=== PATIENT | female | born 1965 ===

== ENCOUNTER 2016-07-10 07:34 | Day surgery (SDC) | payer MEDICARE, MEDICAID ==
[2016-07-10 08:01] VITALS: BMI 21.7
[2016-07-10 08:09] VITALS: O2SAT 100
[2016-07-10] MEDS ORDERED: Propofol 10 mg/ml Inj (20 ML) ONE (08:48)
[2016-07-10 10:31] VITALS: RESP 12
[2016-07-10 10:33] VITALS: BP 138/60; PULSE 65; TEMP 97.2
== END 2016-07-10 10:25 | disposition home or self-care (01) ==
LOC: C.ENDO 07:34
PROVIDERS: ATTEND Internal Medicine Gastroenterology
DX: Z12.11 Encounter for screening for malignant neoplasm of colon (principal); K64.8 Other hemorrhoids; I10 Essential (primary) hypertension; E11.9 Type 2 diabetes mellitus without complications; I73.9 Peripheral vascular disease, unspecified; Z98.84 Bariatric surgery status; Z79.84 Long term (current) use of oral hypoglycemic drugs; K21.9 Gastro-esophageal reflux disease without esophagitis; Z87.891 Personal history of nicotine dependence; Z79.02 Long term (current) use of antithrombotics/antiplatelets
CPT/HCPCS: 45378; 82948; J2704

== ENCOUNTER 2016-08-05 08:44 | Inpatient (IN) | payer MEDICARE, MEDICAID ==
[2016-08-05 09:14] VITALS: BMI 24.3
--- NOTE | 2016-08-05 09:51 | C.PDOC ---
History Of Present Illness Patient is a 51 year old female with a PMHx of DM, who presents to the ER with a right foot ulcer. Patient states she was using Cipro for the infection with no improvement, then switched to Ceftin. However patient sts wound looks worse, has purulent discharge. Patient was seen in [facility] at the beginning of the month where she had an x-ray of the right foot done, which showed possible osteomyelitis. 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 Cornell White, who instructed her to come to the ER. Patient denies fever, nausea, or vomiting. Time Seen by Provider: 08/05/16 09:40 Chief Complaint (Nursing): Lower Extremity Problem/Injury History Per: Patient History/Exam Limitations: no limitations Onset/Duration Of Symptoms: Days Current Symptoms Are (Timing): Still Present Recent travel outside of the [place]: No - Ankle/Foot Description Of Injury: Other (Right foot ulcer) Past Medical History Reviewed: Historical Data, Nursing Documentation, Vital Signs Vital Signs: Last Vital Signs Temp 97.8 F 08/05/16 10:37 Pulse 62 08/05/16 10:37 Resp 18 08/05/16 10:37 BP 128/72 08/05/16 10:37 Pulse Ox 100 08/05/16 10:37 - Medical History PMH: Anemia (Iron deficiency anemia), HTN, Hypercholesterolemia Denies: Chronic Kidney Disease Surgical History: Endoscopy - [facility] Procedures D & C NEC (08/08/14) ESOPHAGOGASTRODUODENOSCOPY [EGD] W/CLOSED BIOPSY (05/12/14) LAPAROSCOPIC GASTROENTEROSTOMY (09/05/14) LAPAROSCOPIC REPAIR OF DIAPHRAGMATIC HRN, ABDOMINAL APPROACH (09/05/14) OTHER ENDOSCOPY OF SM INTEST (12/24/14) OTHER GASTROSCOPY (09/05/14) Family History: States: Unknown Family Hx - Social History Hx Alcohol Use: No Hx Substance Use: No Review Of Systems Constitutional: Negative for: Fever Gastrointestinal: Negative for: Nausea, Vomiting Musculoskeletal: Positive for: Foot Pain (Right foot ulcer) Physical Exam - Physical Exam Appears: Well, Non-toxic Skin: Normal Color, Warm, Dry Head: Atraumatic, Normacephalic Oral Mucosa: Moist Chest: Symmetrical, No Tenderness Cardiovascular: Rhythm Regular, No Murmur Respiratory: Normal Breath Sounds, No Rales, No Rhonchi, No Wheezing Gastrointestinal/Abdominal: Soft, No Tenderness Extremity: Deformity (Feet appear deformed, bilaterally), Other (Open wound on bottom of right foot with yellow discharge) Pulses: Left Dorsalis Pedis: Normal, Right Dorsalis Pedis: Normal Neurological/Psych: Oriented x3, Normal Speech, Normal Cognition ED Course And Treatment - Laboratory Results Result Diagrams: 08/05/16 10:44 08/05/16 10:44 Progress Note: Blood work and right foot x-ray ordered, IV fluids administered. Spoke with Dr. White in the ER who requests patient to be admitted under the hospitalists service. Spoke with hospitalist who accepted patient on her service. Disposition - Disposition Disposition: HOSPITALIZED Disposition Time: 11:55 Condition: STABLE - Clinical Impression Clinical Impression: Foot ulcer - Scribe Statement The provider has reviewed the documentation as recorded by the Scribelieser Nur All medical record entries made by the Scribe were at my direction and personally dictated by me. I have reviewed the chart and agree that the record accurately reflects my personal performance of the history, physical exam, medical decision making, and the department course for this patient. I have also personally directed, reviewed, and agree with the discharge instructions and disposition. Decision To Admit - Pt Status Changed To: Hospital Disposition Of: Inpatient - Admit Certification Admit to Inpatient:: After my assessment, the patient will require hospitalization for at least two midnights. This is because of the severity of symptoms shown, intensity of services needed, and/or the medical risk in this patient being treated as an outpatient. - InPatient: Physician Admission Certification: I certify that this patient requires 2 or more midnights of care for the following reason:: Patient will need more than 2 days of IV antibiotics (she failed outpatient treatment with 2 antibiotics), she also may need surgical treatment of the wound. - . Bed Request Type: Regular Patient Diagnosis: Foot ulcer
[2016-08-05] MEDS ORDERED: Sodium Chloride 0.9% 500 ML IV STA (10:14)
[2016-08-05] MEDS ORDERED: Sodium Chloride 0.9% 500 ML IV ONE (10:44)
[2016-08-05 10:51] LABS: BASO # 0.1 K/uL (0.0-0.2); BASO % 1.9 % (0.0-2.0); EOS # 0.1 K/uL (0.0-0.7); EOS % 2.2 % (0.0-4.0); HEMATOCRIT 34.4 % (34.0-47.0); LYMPH # 1.8 K/uL (1.0-4.3); MEAN CELL VOLUME 82.3 fL (81.0-99.0); MEAN CORPUSCULAR HEMOGLOBIN 26.4 pg (27.0-31.0); MEAN CORPUSCULAR HGB CONC 32.1 g/dL (33.0-37.0); MEAN PLATELET VOLUME 10.7 fL (7.2-11.7); MONO # 0.3 K/uL (0.0-0.8); MONO % 5.8 % (0.0-10.0); RED CELL DISTRIBUTION WIDTH 13.4 % (11.5-14.5); WHITE BLOOD COUNT 5.8 K/uL (4.8-10.8)
[2016-08-05 11:04] LABS: CHLORIDE 100 mmol/L (98-107); POTASSIUM 4.5 mmol/L (3.6-5.2); SODIUM 140 mmol/L (132-148)
[2016-08-05 11:06] LABS: ALB/GLOB RATIO 1.1 (1.0-2.1); AST/SGOT 45 U/L (14-36); BILIRUBIN,TOTAL 0.5 mg/dL (0.2-1.3); BLOOD UREA NITROGEN 27 mg/dL (7-17); CARBON DIOXIDE 26 mmol/L (22-30); GFR AFRICAN-AMERICAN > 60; TOTAL PROTEIN 8.4 g/dL (6.3-8.3)
[2016-08-05 11:07] LABS: ALKALINE PHOSPHATASE 129 U/L (38-126); ALT/SGPT 57 U/L (9-52); CALCIUM 9.2 mg/dl (8.6-10.4); GLUCOSE,RANDOM 153 mg/dL (65-105)
[2016-08-05] MEDS ORDERED: Piperacillin/Tazobact 3.375 gm 100 ML IV STA (11:26)
[2016-08-05] MEDS ORDERED: Piperacillin/Tazobact 3.375 gm 100 ML IVPB ONE (11:42)
--- NOTE | 2016-08-05 12:13 | CP.PCM.HP ---
Addendum entered and electronically signed by Zohra Galvez 08/05/16 15:11: f/u acute hepatitis panel and u/s abdomen for elevated LFTs Addendum entered and electronically signed by Zohra Galvez 08/05/16 14:35: f/u platelet mixing study as per Dr. Taylor Original Note: <Zohra Galvez - Last Filed: 08/05/16 14:06> History of Present Illness - History of Present Illness History of Present Illness: CC: R foot blister HPI: Patient is a 51 year old female PMHx of PAD, DM, iron deficiency anemia, HTN, hypercholesterolemia presenting with a R foot blister first noticed 6 weeks ago. Patient reports she was seen by Dr. White who gave her PO ciprofloxacin which did not help her infection. Patient was seen in [facility] at the beginning of the month where she had a questionable x-ray of the right foot done, which showed possible osteomyelitis. She has had a similar complain 4-5 years ago for which she was admitted and started on IV antibiotics and then discharged home with a PICC line for IV abx for osteomyelitis. Patient denies much pain at the site and reports that her regimen of Ibuprofen 600mg every 12 hours helps golden the pain. At home she has been applying betadine and the silversalazine and wrapping her foot with gauze. She was last seen by Dr. Jaeger for her PAD 1 month ago and had b/l ABIs. Patient reports some pain with ambulation as that places pressure on the site but otherwise denies any fever, chills, numbness/tingling of her extremities, chest pain, palpitations, shortness of breath, cough, abdominal pain, bowel/ bladder complaints, swelling of her extremities, recent travel/sick contacts. PMD: Dr. King Cardiovascular: Dr. Jaeger Podiatry: Dr. White PMHx: PAD, DM, iron deficiency anemia, HTN, hypercholesterolemia Meds: Plavix, Glipizide, Hydralazine, HCTZ ALL: shellfish PSurg: LE stents by Dr. Jaeger 4-5 years ago, Bariatric surgery [address] Flores, 14 years ago, Hysterectomy by Dr. Kumar 2014 PHospitalizations: 2015 for GI bleed and vaginal bleed FamHx: father with prostate ca and had [place] at age 64; mother of multiple myeloma 14 years ago; both parents had DM and HTN; no hx of CVA SocHx: patient used to smoke 3-4 cigarettes/day for 20 years and quit 14 years ago; drinks EtOH sociallyl denies drug use; lives at home with and three children; works at [employer] ROS: Admits to mild headaches at times and nausea; denies fever, chills, numbness/tingling of her extremities, chest pain, palpitations, shortness of breath, cough, abdominal pain, bowel/bladder complaints, swelling of her extremities ED Course: CBC, CMP, R foot x-ray ordered, IV fluids, 1gm vancomycin, and 1 dose zosyn, blood cultures, wound cultures. Present on Admission - Present on Admission Any Indicators Present on Admission: No Review of Systems - Constitutional Constitutional: As Per HPI. absent: Chills, Fever - EENT Eyes: As Per HPI. absent: Change in Vision Ears: As Per HPI. absent: Tinnitus, Dizziness Nose/Mouth/Throat: As Per HPI. absent: Nasal Congestion, Sore Throat - Cardiovascular Cardiovascular: As Per HPI. absent: Chest Pain, Dyspnea, Edema - Respiratory Respiratory: As Per HPI. absent: Cough, Dyspnea on Exertion, Chest Congestion - Gastrointestinal Gastrointestinal: As Per HPI, Nausea. absent: Abdominal Pain, Constipation, Diarrhea, Vomiting - Genitourinary Genitourinary: As Per HPI. absent: Dysuria, Hematuria, Pyuria - Musculoskeletal Musculoskeletal: As Per HPI. absent: Joint Swelling, Numbness, Stiffness, Tingling - Integumentary Integumentary: As Per HPI, Non-Healing Lesions (R plantar), Wounds (plantar aspect of right foot). absent: Rash, Unusual Bruising - Neurological Neurological: As Per HPI, Headaches. absent: Dizziness, Numbness, Tingling, Weakness - Endocrine Endocrine: As Per HPI. absent: Palpitations - Hematologic/Lymphatic Hematologic: As Per HPI. absent: Easy Bleeding, Easy Bruising Past Patient History - Past Medical History & Family History Past Medical History?: Yes - Past Social History Smoking Status: Former Smoker - CARDIAC Hx Hypercholesterolemia: Yes Hx Hypertension: Yes - PULMONARY Hx Respiratory Disorders: No - NEUROLOGICAL Hx Neurological Disorder: No - HEENT Hx HEENT Problems: No - RENAL Hx Chronic Kidney Disease: No - ENDOCRINE/METABOLIC Hx Endocrine Disorders: Yes Hx Diabetes Mellitus Type 2: Yes - HEMATOLOGICAL/ONCOLOGICAL Hx Anemia: Yes (Iron deficiency anemia) - INTEGUMENTARY Hx Dermatological Problems: No - MUSCULOSKELETAL/RHEUMATOLOGICAL Hx Musculoskeletal Disorders: No Hx Falls: No - GASTROINTESTINAL Hx Gastrointestinal Disorders: Yes Hx Ulcer: Yes - GENITOURINARY/GYNECOLOGICAL Hx Genitourinary Disorders: Yes Hx Reproductive Disorders: Yes (MENORRHAGIA) - PSYCHIATRIC Hx Substance Use: No - SURGICAL HISTORY Hx Surgeries: Yes Hx Section: Yes (X1) Hx Femoral-Popliteal Bypass Graft: Yes Hx Gastric Bypass Surgery: Yes Hx Hysterectomy: Yes - ANESTHESIA Hx Anesthesia: Yes Hx Anesthesia Reactions: No Hx Malignant Hyperthermia: No Meds Allergies/Adverse Reactions: Allergies Allergy/AdvReac Type Severity Reaction Status Date / Time shellfish derived Allergy Intermediate RASH Verified 08/05/16 09:13 Physical Exam - Constitutional Appears: Non-toxic, No Acute Distress - Head Exam Head Exam: ATRAUMATIC, NORMAL INSPECTION, NORMOCEPHALIC - Eye Exam Eye Exam: EOMI, Normal appearance, PERRL. absent: Conjunctival injection, Scleral icterus Pupil Exam: NORMAL ACCOMODATION - ENT Exam ENT Exam: Mucous Membranes Moist - Neck Exam Neck exam: Positive for: Normal Inspection. Negative for: Tenderness - Respiratory Exam Respiratory Exam: Clear to Auscultation Bilateral, NORMAL BREATHING PATTERN. absent: Rales, Rhonchi, Wheezes - Cardiovascular Exam Cardiovascular Exam: REGULAR RHYTHM, RRR, +S1, +S2 - GI/Abdominal Exam GI & Abdominal Exam: Normal Bowel Sounds, Soft. absent: Firm, Guarding, Rigid, Tenderness - Extremities Exam Extremities exam: Positive for: normal capillary refill. Negative for: calf tenderness, pedal edema, tenderness Additional comments: b/l charcot feet R foot wrapped by podiatry - Back Exam Back exam: NORMAL INSPECTION. absent: rash noted, tenderness - Neurological Exam Neurological exam: Alert, Oriented x3 - Psychiatric Exam Psychiatric exam: Normal Affect, Normal Mood - Skin Skin Exam: Dry, Intact, Normal Color, Warm Results - Vital Signs Recent Vital Signs: Last Vital Signs Temp 97.8 F 08/05/16 10:37 Pulse 62 08/05/16 10:37 Resp 18 08/05/16 10:37 BP 128/72 08/05/16 10:37 Pulse Ox 100 08/05/16 10:37 - Labs Result Diagrams: 08/05/16 10:44 08/05/16 10:44 Labs: Laboratory Results - last 24 hr 08/05/16 08/05/16 08/05/16 10:34 10:44 10:44 WBC 5.8 D RBC 4.18 Hgb 11.0 Hct 34.4 MCV 82.3 D MCH 26.4 L MCHC 32.1 L RDW 13.4 Plt Count 198 D MPV 10.7 Neut % (Auto) 59.1 Lymph % (Auto) 31.0 [place] % (Auto) 5.8 Eos % (Auto) 2.2 Baso % (Auto) 1.9 Neut # 3.4 Lymph # 1.8 [place] # 0.3 Eos # 0.1 Baso # 0.1 Sodium 140 Potassium 4.5 Chloride 100 Carbon Dioxide 26 Anion Gap 18 BUN 27 H Creatinine 1.1 Est GFR ( Amer) > 60 Est GFR (Non-Af Amer) 53 POC Glucose (mg/dL) 158 H Random Glucose 153 H Calcium 9.2 Total Bilirubin 0.5 AST 45 H D ALT 57 H D Alkaline Phosphatase 129 H D Total Protein 8.4 H Albumin 4.4 Globulin 3.9 Albumin/Globulin Ratio 1.1 Assessment & Plan - Assessment and Plan (Free Text) Assessment: 51 year old female PMHx of PAD, DM, iron deficiency anemia, HTN, hypercholesterolemia presenting with a R foot blister first noticed 6 weeks ago Plan: Diabetic R plantar foot ulcer Patient admitted to med/surg rule out osteomyelitis f/u MRI R foot w/ and w/out contrast f/u R foot x-ray official read Vancomycin 1gm IVPB BID Zosyn 3.375 IVPB Q6H f/u blood culture f/u wound culture Dr. White podiatry following- patient for debridement 08/06/[address] Fabian consulted- f/u reccs Hx of PAD Plavix 75mg po on hold for procedure on 08/06/16 Hx of Hypertension Continued home medications: Hydralazine 10mg PO BID HCTZ 25mg PO daily Hx of DM2 Continued home medications: Glipizide 10mg PO BIDAC f/u HgbA1c Accucheck RISS ACHS low dose Hx of hypercholesterolemia patient has no home med f/u lipid panel Hx of Iron Deficiency Anemia H&H stable Monitor PPX consistent carb heart healthy diet NPO after midnight SCD c/i VTE ppx on hold for OR tomorrow PT/OT recommended after debridement tomorrow 08/[address] Brandon Galvez PGY1 <Glenys Taylor Cyrus - Last Filed: 08/05/16 21:18> Results - Vital Signs Recent Vital Signs: Last Vital Signs Temp 98.9 F 08/05/16 19:06 Pulse 69 08/05/16 19:06 Resp 20 08/05/16 19:06 BP 167/66 H 08/05/16 19:06 Pulse Ox 100 08/05/16 19:06 - Labs Result Diagrams: 08/05/16 10:44 08/05/16 10:44 Labs: Laboratory Results - last 24 hr 08/05/16 17:52 POC Glucose (mg/dL) 281 H Attending/Attestation - Attestation I have personally seen and examined this patient.: Yes I have fully participated in the care of the patient.: Yes I have reviewed all pertinent clinical information: Yes Notes (Text): Patient seen, evaluated and case discussed with day-time resident. Patient seen in [facility] ED 15 on 08/05/16 at approximately 12:45PM. Podiatry (Dr. White) had seen and evaluated patient in the morning; requesting hospitalist admission. Patient seen at bedside with present. Patient with a history of PAD (vascular stents b/l), diabetes (a1c: 6.5 controlled), iron deficiency anemia, hypertension, elevated cholestrol, hx of morbid obesity controlled s/p gastric bypass surgery comes in with a history of progressively worsening right diabetic ulcer for the past 6 weeks with associated purulent drainage, prescribed PO antibiotic but refractory, with history of prior osteomyelitis of the same heel about 4-5 years ago requiring IV Abx for 4 weeks. Infectious disease consulted given hx of prior osteomyelitis Patient ordered for MRI of right foot ulcer. Cardiology consulted given hx of pad (requiring stents and on plavix) known to the patient. Per Detsky's criteria, patient has Class 1 risk associated with 6% complications. Patient has had a prior myocardial stress test from two years which is normal. Chest xray shows no active disease. Assessment/Plan 1) Diabetic R plantar foot ulcer * Patient admitted to med/surg * Suspicion for osteomyelitis given hx of diabetes and prior history, hx of PAD * f/u MRI R foot w/ and w/out contrast * f/u R foot x-ray official read * In the ED, patient received dose of Vancomycin and Zosyn; will continue Vancomycin 1gm IVPB Q12 hours and Zosyn 3.375 IVPB Q6H * f/u blood culture * f/u wound culture * Podiatry consult (Dr. White) on board-->patient scheduled for wound debridement and bone biopsy * Infectious disease (Dr. Fabian) on consult given prior hx of osteomyelitis 2) Peripheral vascular disease * Plavix 75mg po daily on hold for procedure on 08/06/16 * ordered for platelet mixing study * Patient reports has LOY study last month with cardiology, and reports it was normal 3) Hypertension * Hydralazine 10mg PO BID * HCTZ 25mg PO daily * Monitor vital signs 4) Diabetes type 2 * hx of morbid obesity; s/p gastric bypass surgery * continue with home medication: Glipizide 10mg PO BID * Will give IV fluids: D5 1/2NS 75 cc/hr overnight to prevent hypoglycemia * f/u HgbA1c * Accuchecks QAC and HS * RISS ACHS low dose 5)Hypercholesterolemia * patient has no home med * hx of gastric bypass surgery * f/u lipid panel AM 6) Hx of Iron Deficiency Anemia * H&H stable * Monitor * patient is not on any current iron supplementation; used to see Dr. Engle outpatient 7) Transaminitis * Ordered for hepatitis panel * Abdominal US * monitor liver function tests 8) PPX * consistent carb heart healthy diet * NPO after midnight * Contraindications to SCD secondary to PAD * VTE ppx on hold for OR tomorrow * PT/OT recommended after debridement tomorrow 08/06 * Will start D51/2NS 75 cc/hr after midnight tonight
--- NOTE | 2016-08-05 15:33 | RAD ---
Right foot three views History: Diabetic foot ulcer. Comparison: None available. Findings: Prominent soft tissue swelling seen within the lateral mid foot. Patchy increased sclerosis seen throughout the 5th metatarsal shaft which may represent underlying acute osteomyelitis. Correlation with MRI and or 3 phase bone scan is recommended. Deformity with bony ankylosis and sclerosis noted at the level of the 2nd through metatarsal bases and corresponding tarsal bones. Near complete ankylosis of the visualized midfoot including the cuneiform bones, cuboid bone, and navicular bone. Bony ankylosis including the anterior calcaneus and talus. Productive change with cortical sclerosis seen at the volar midfoot as well as the lateral base of the 5th metatarsal bone. Prominent productive change at the level of the residual cuneiform bones and navicular bone. Diffuse osteopenia. Impression: Prominent soft tissue swelling seen within the lateral mid foot. Patchy increased sclerosis seen throughout the 5th metatarsal shaft which may represent underlying acute osteomyelitis. Correlation with MRI and or 3 phase bone scan is recommended. Deformity with bony ankylosis and sclerosis noted at the level of the 2nd through metatarsal bases and corresponding tarsal bones. Near complete ankylosis of the visualized midfoot including the cuneiform bones, cuboid bone, and navicular bone. Bony ankylosis including the anterior calcaneus and talus. Productive change with cortical sclerosis seen at the volar midfoot as well as the lateral base of the 5th metatarsal bone. Prominent productive change at the level of the residual cuneiform bones and navicular bone. Diffuse osteopenia. Further evaluation with MRI and or 3 phase bone scan is recommended to exclude underlying osteomyelitis.
[2016-08-05] MEDS ORDERED: Gadodiamide 287 MG/ML VIAL (15ML) IV ONE (15:35)
--- NOTE | 2016-08-05 15:52 | CP.PCM.CON ---
History of Present Illness - History of Present Illness History of Present Illness: Podiatry consult note- Dr. White 51 year old female with PMHx of PAD, DM, iron deficiency anemia, HTN, hypercholesterolemia, and charcot, presenting to the ED with a chief complaint of right plantar foot ulceration. Patient has had the lesion for about six weeks , states that she has had purulent drainage from the area. She has seen Dr. White as outpatient and was given multiple PO antibiotics. Patient has a history of OM treated with six weeks IV abc, her most recent x-rays are suspicious for OM as well. Patient denies n/v/f/c/sob at this time. Past Patient History - Past Medical History & Family History Past Medical History?: Yes - Past Social History Smoking Status: Former Smoker - CARDIAC Hx Hypercholesterolemia: Yes Hx Hypertension: Yes - PULMONARY Hx Respiratory Disorders: No - NEUROLOGICAL Hx Neurological Disorder: No - HEENT Hx HEENT Problems: No - RENAL Hx Chronic Kidney Disease: No - ENDOCRINE/METABOLIC Hx Endocrine Disorders: Yes Hx Diabetes Mellitus Type 2: Yes - HEMATOLOGICAL/ONCOLOGICAL Hx Anemia: Yes (Iron deficiency anemia) - INTEGUMENTARY Hx Dermatological Problems: No - MUSCULOSKELETAL/RHEUMATOLOGICAL Hx Musculoskeletal Disorders: No Hx Falls: No - GASTROINTESTINAL Hx Gastrointestinal Disorders: Yes Hx Ulcer: Yes - GENITOURINARY/GYNECOLOGICAL Hx Genitourinary Disorders: Yes Hx Reproductive Disorders: Yes (MENORRHAGIA) - PSYCHIATRIC Hx Substance Use: No - SURGICAL HISTORY Hx Surgeries: Yes Hx Section: Yes (X1) Hx Femoral-Popliteal Bypass Graft: Yes Hx Gastric Bypass Surgery: Yes Hx Hysterectomy: Yes - ANESTHESIA Hx Anesthesia: Yes Hx Anesthesia Reactions: No Hx Malignant Hyperthermia: No Meds Allergies/Adverse Reactions: Allergies Allergy/AdvReac Type Severity Reaction Status Date / Time shellfish derived Allergy Intermediate RASH Verified 08/05/16 09:13 - Medications Medications: Current Medications Glipizide (Glucotrol) 10 mg PO BIDAC ASIF Hydralazine HCl (Apresoline) 10 mg PO BID ASIF Hydrochlorothiazide (Hydrodiuril) 25 mg PO DAILY ASIF Piperacillin Sod/Tazobactam (Sod 3.375 gm/ Sodium Chloride) 100 mls @ 200 mls/ hr IVPB Q6 ASIF Vancomycin HCl 1 gm/ Sodium (Chloride) 250 mls @ 166.7 mls/hr IVPB Q12 ASIF Insulin Aspart (Novolog) 0 unit SC ACHS ASIF PRN Reason: Protocol Physical Exam - Constitutional Appears: Well, Non-toxic, No Acute Distress - Neurological Exam Neurological exam: Oriented x3 - Psychiatric Exam Psychiatric exam: Normal Affect, Normal Mood - Additional Findings Additional findings: DERMATOLOGIC: Right plantar foot ulceration with hyperkeratotic margin, fibrotic wound base, mild purulent drainage, mild undermining, no erythema or streaking noted. The surrounding skin is intact with xerosis present. 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 White Patients foot dressed with betadine, DSD Patient to OR tomorrow morning at 7:30 am for wound debridement and bone biopsy NPO after midnight Will f/u right foot MRI F/u wound cultures Pt started on IV vanco and Zosyn Podiatry will continue to follow
--- NOTE | 2016-08-05 16:06 | RAD ---
PROCEDURE: CHEST RADIOGRAPH, 1 VIEW HISTORY: baseline cxr COMPARISON: 06/20/2016 FINDINGS: LUNGS: No focal infiltrate or effusion. PLEURA: No pneumothorax or pleural fluid seen. CARDIOVASCULAR: Normal. OSSEOUS STRUCTURES: No significant abnormalities. VISUALIZED UPPER ABDOMEN: Normal. OTHER FINDINGS: None. IMPRESSION: No active disease.
[2016-08-05] MEDS: Piperacillin/Tazobact 3.375 GM in Sodium Chloride 100 ML IVPB SCH (20:40)
[2016-08-05] MEDS: (Novolog) Insulin Aspart, Recombinant 100 u/ml 10 ml vial SC SCH ×2 (20:51→22:15)
--- NOTE | 2016-08-05 20:59 | MRI ---
MRI right foot History: Osteomyelitis. Neuropathic arthropathy. Comparison: X-ray dated 08/05/2016 Technique: Multi-echo multiplanar sequences were performed through the right lower extremity without and with the use of intravenous contrast. Findings: Prominent reactive bone marrow edema with patchy decreased T1 signal, increased STIR signal and patchy post-contrast enhancement seen within the 5th metatarsal bone extending from the distal medullary cavity to the base with adjacent extension into the residual ankylosed cuboid and lateral cuneiform bones. Milder patchy reactive edema at the base of the 4th metatarsal bone. These findings may represent a developing acute osteomyelitis versus stress fracture versus the sequelae of an active component of neuropathic arthropathy versus additional etiology. Clinical correlation. Multiple tarsal and tarsal/metatarsal deformities with partial partial ankylosis. Prominent deformities of the middle and lateral cuneiform bones with prominent ankylosis of the residual remaining tarsal bones which are markedly deformed. Prominent narrowing of the tibiotalar joint space posteriorly with subchondral edema, subchondral cyst formation, and prominent osteochondral change. Prominent subchondral cyst measures 7.5 millimeters noted at the posterior aspect of the talar dome with an additional 4 millimeter osteochondral lesion noted at the medial talar dome. Prominent osteochondral change noted at the posterior aspect of the distal tibia at the tibiotalar joint space. Superimposed acute infectious and or inflammatory changes cannot entirely be excluded. Clinical correlation. Small ankle joint effusion. Anterior extensor tendons are preserved. Mild tenosynovitis of the posterior tibial tendon sheath. Peroneal tendons are preserved. Prominent bony deformity with increased STIR signal noted at the base of the 2nd metatarsal bone with adjacent fraying and partial tearing of the Lisfranc ligament. Clinical correlation. Reactive edema seen within the lateral aspect of the medial cuneiform bone. Fraying with increased signal seen within the deep fibers of the deltoid ligament suggestive for partial tearing. Achilles tendon preserved. Plantar fascia preserved. Soft tissue ulceration seen in the lateral midfoot. Impression: 1. Prominent reactive bone marrow edema with patchy decreased T1 signal, increased STIR signal and patchy post-contrast enhancement seen within the 5th metatarsal bone extending from the distal medullary cavity to the base with adjacent extension into the residual ankylosed cuboid and lateral cuneiform bones. Milder patchy reactive edema at the base of the 4th metatarsal bone. These findings may represent a developing acute osteomyelitis versus stress fracture versus the sequelae of an active component of neuropathic arthropathy versus additional etiology. Clinical correlation. 2. Multiple tarsal and tarsal/metatarsal deformities with partial partial ankylosis. Prominent deformities of the middle and lateral cuneiform bones with prominent ankylosis of the residual remaining tarsal bones which are markedly deformed. 3. Prominent narrowing of the tibiotalar joint space posteriorly with subchondral edema, subchondral cyst formation, and prominent osteochondral change. Prominent subchondral cyst measures 7.5 millimeters noted at the posterior aspect of the talar dome with an additional 4 millimeter osteochondral lesion noted at the medial talar dome. Prominent osteochondral change noted at the posterior aspect of the distal tibia at the tibiotalar joint space. Superimposed acute infectious and or inflammatory changes cannot entirely be excluded. Clinical correlation. 4. Small ankle joint effusion. 5. Mild tenosynovitis of the posterior tibial tendon sheath. 6. Prominent bony deformity with increased STIR signal noted at the base of the 2nd metatarsal bone with adjacent fraying and partial tearing of the Lisfranc ligament. Clinical correlation. 7. Reactive edema seen within the lateral aspect of the medial cuneiform bone. 8. Fraying with increased signal seen within the deep fibers of the deltoid ligament suggestive for partial tearing. 9. Soft tissue ulceration seen in the lateral midfoot. These findings were preliminarily reported by Dr Pranay Ernandez at 5:26 p.m. on 08/05/2016 from [facility].
[2016-08-05] MEDS: Saccharomyces Boulardi 250 mg Cap PO SCH (22:15)
[2016-08-06] MEDS: Dextrose 5%/0.45% NS 1,000 ML IV SCH ×3 (00:05→21:15)
[2016-08-06] MEDS: Piperacillin/Tazobact 3.375 GM in Sodium Chloride 100 ML IVPB SCH ×4 (00:14→18:34)
[2016-08-06 07:16] LABS: BASO # 0.1 K/uL (0.0-0.2); BASO % 1.1 % (0.0-2.0); EOS # 0.2 K/uL (0.0-0.7); EOS % 4.2 % (0.0-4.0); HEMATOCRIT 33.3 % (34.0-47.0); LYMPH # 2.3 K/uL (1.0-4.3); LYMPH % 44.6 % (20.0-40.0); MEAN CELL VOLUME 82.6 fL (81.0-99.0); MEAN CORPUSCULAR HEMOGLOBIN 26.5 pg (27.0-31.0); MEAN CORPUSCULAR HGB CONC 32.1 g/dL (33.0-37.0); MEAN PLATELET VOLUME 10.5 fL (7.2-11.7); MONO # 0.4 K/uL (0.0-0.8); MONO % 7.2 % (0.0-10.0); RED CELL DISTRIBUTION WIDTH 13.7 % (11.5-14.5); WHITE BLOOD COUNT 5.3 K/uL (4.8-10.8)
[2016-08-06] MEDS ORDERED: HYDROmorphone 0.5 mg/0.5 ml ISec IVP PRN (07:33)
[2016-08-06] MEDS ORDERED: Bupivacaine HCl 0.5% PF (10 ml) Inj ONE (07:41)
[2016-08-06] MEDS ORDERED: Lidocaine 1% Inj (20ml) ONE (07:42)
[2016-08-06] MEDS ORDERED: Lactated Ringer's 1,000 ML IV ONE ×2 (07:50→08:55)
[2016-08-06 07:54] LABS: POTASSIUM 4.2 mmol/L (3.6-5.2)
[2016-08-06 07:56] LABS: ALB/GLOB RATIO 1.1 (1.0-2.1); BILIRUBIN,TOTAL 0.5 mg/dL (0.2-1.3); TOTAL PROTEIN 7.1 g/dL (6.3-8.3)
[2016-08-06 07:57] LABS: CALCIUM 8.9 mg/dl (8.6-10.4); MAGNESIUM 1.8 mg/dL (1.6-2.3); PHOSPHOROUS 4.6 mg/dL (2.5-4.5)
[2016-08-06] MEDS ORDERED: Propofol 10 mg/ml Inj (20 ML) ONE (07:59)
[2016-08-06] MEDS ORDERED: Midazolam 2 MG/2 ML VIAL ONE (07:59)
[2016-08-06] MEDS ORDERED: ePHEDrine 50 mg/ml Inj ONE (08:09)
[2016-08-06] MEDS: (Novolog) Insulin Aspart, Recombinant 100 u/ml 10 ml vial SC SCH ×4 (08:15→22:36)
--- NOTE | 2016-08-06 09:04 | PCM.SURG1 ---
Surgeon's Initial Post Op Note - Surgeon's Notes Surgeon: Dr. White Heavy Line Technician: Gabby Anderson PGY-2 Type of Anesthesia: General LMA, Local Anesthesia Administered By: Dr. 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 M: 4-0 nylon. A: 16 ml 1:1 0.5 marcaine plain, 1% lidocaine plain Post-Operative Diagnosis: same Operation Performed: right foot wound debridement with debridement of bone, bone biopsy Specimen/Specimens Removed: right foot bone biopsy, culture Estimated Blood Loss: EBL {In ML}: 15 Blood Products Given: N/A Drains Used: No Drains Post-Op Condition: Good Date of Surgery/Procedure: 08/06/16 Time of Surgery/Procedure: 08:00
[2016-08-06] MEDS ORDERED: Oxycodone/Acetaminophen 5/325 mg Tab PO PRN (09:06)
[2016-08-06 09:30] LABS: IRON 95 ug/dL (37-170)
[2016-08-06] MEDS: Labetalol 25mg/5ml Syringe IVP PRN ×2 (09:40→09:42)
[2016-08-06] MEDS ORDERED: Labetalol 5 mg/ml Inj 20ML IV ONE ×2 (09:47→09:52)
--- NOTE | 2016-08-06 10:24 | CARD ---
APPROVED REPORT EKG Measurement Heart [id number] <Conclusion> Normal sinus rhythm Septal infarct, age undetermined Abnormal ECG
--- NOTE | 2016-08-06 11:10 | CP.PCM.CON ---
History of Present Illness - History of Present Illness History of Present Illness: Patient is a 51 year old female with a PMHx of DM, who presents to the ER with a right foot ulcer. Patient states she was using Cipro for the infection with no improvement, then switched to Ceftin. However patient sts wound looks worse, has purulent discharge. Patient was seen in [facility] at the beginning of the month where she had an x-ray of the right foot done, which showed possible osteomyelitis. Patient saw her management information systems director, Dr. Cornell White, who instructed her to come to the ER. Patient denies fever, nausea, or vomiting. - Medical History PMH: Anemia (Iron deficiency anemia), HTN, Hypercholesterolemia Denies: Chronic Kidney Disease Surgical History: Endoscopy - [facility] Procedures Review of Systems - Constitutional Constitutional: As Per HPI - EENT Eyes: absent: As Per HPI, Blind Spots, Blurred Vision, Change in Vision, Decreased Night Vision, Diplopia, Discharge, Dry Eye, Exophthalmos, Floaters, Irritation, Itchy Eyes, Loss of Peripheral Vision, Pain, Photophobia, Requires Corrective Lenses, Sees Flashes, Spots in Vision, Tunnel Vision, Other Visual Disturbances, Loss of Vision, Other Ears: absent: As Per HPI, Decreased Hearing, Ear Discharge, Ear Pain, Tinnitus, Abnormal Hearing, Disequilibrium, Dizziness, Other Nose/Mouth/Throat: absent: As Per HPI, Epistaxis, Nasal Congestion, Nasal Discharge, Nasal Obstruction, Nasal Trauma, Nose Pain, Post Nasal Drip, Sinus Pain, Sinus Pressure, Bleeding Gums, Change in Voice, Dental Pain, Dry Mouth, Dysphagia, Halitosis, Hoarsness, Lip Swelling, Mouth Lesions, Mouth Pain, Odynophagia, Sore Throat, Throat Swelling, Tongue Swelling, Facial Pain, Neck Pain, Neck Mass, Other - Breasts Breasts: absent: As Per HPI, Change in Shape, Mass, Pain, Nipple Discharge, Nipple Inversion, Skin Changes, Swelling, Other - Cardiovascular Cardiovascular: absent: As Per HPI, Acrocyanosis, Chest Pain, Chest Pain at Rest , Chest Pain with Activity, Claudication, Diaphoresis, Dyspnea, Dyspnea on Exertion, Edema, Irregular Heart Rhythm, Pain Radiating to Arm/Neck/Jaw, Leg Edema, Leg Ulcers, Lightheadedness, Orthopnea, Palpitations, Paroxysmal Nocturnal Dyspnea, Pedal Edema, Radiating Pain, Rapid Heart Rate, Slow Heart Rate, Syncope, Other - Respiratory Respiratory: absent: As Per HPI, Cough, Dyspnea, Hemoptysis, Dyspnea on Exertion , Wheezing, Snoring, Stridor, Pain on Inspiration, Chest Congestion, Excessive Mucous Production, Change in Mucous Color, Pain with Coughing, Other - Gastrointestinal Gastrointestinal: absent: As Per HPI, Abdominal Pain, Belching, Bloating, Change in Bowel Habits, Change in Stool Character, Coffee Ground Emesis, Constipation, Cramping, Diarrhea, Dyspepsia, Dysphagia, Early Satiety, Excessive Flatus, Fecal Incontinence, Heartburn, Hematemesis, Hematochezia, Loose Stools, Melena, Nausea, Odynophagia, Temesmus, Vomiting, Other - Genitourinary Genitourinary: absent: As Per HPI, Change in Urinary Stream, Difficulty Urinating, Dysuria, Flank Pain, Hematuria, Pyuria, Nocturia, Urinary Incontinence, Urinary Frequency, Urinary Hesitance, Urinary Urgency, Voiding Freq/Small Amts, Freq UTI, Hx Renal/Bladder Calculi, Hx /Renal Surgery, Bladder Distension, Other - Reproductive: Female Reproductive:Female: absent: As Per HPI, Amenorrhea, Amenorrhea/ Control, Currently Menstual, Cycle <21 Days, Cycle >35 Days, Cycle Variable, Menses 1-7 Days, Menses >/= 8 Days, Menses Variable, Cycle > 4 Weeks Between, No Menses for 6 Months, Heavy Menses, Light Menses, Normal Menses, Spotting Between Cycles , S/P Hysterectomy, Menopausal, Post Menopausal, Premenarche, Abnormal Vaginal Bleeding, Dysmenorrhea, Dyspareunia, Genital Lesions, Genital Pruritis, Pelvic Pain, Prolapse Symptoms, Sexual Dysfunction, Vaginal Discharge, Vaginal Dryness , Vaginal Odor, Vaginal Pruritis, Other - Menstruation Menstruation: absent: As Per HPI, Amenorrhea, Amenorrhea/ Control, Currently Menstual, Cycle <21 Days, Cycle >35 Days, Cycle Variable, Menses 1-7 Days, Menses >/= 8 Days, Menses Variable, Cycle > 4 Weeks Between, No Menses for 6 Months, Heavy Menses, Light Menses, Normal Menses, Spotting Between Cycles , S/P Hysterectomy, Menopausal, Post Menopausal, Premenarche, Abnormal Vaginal Bleeding, Dysmenorrhea, Other - Musculoskeletal Musculoskeletal: As Per HPI - Integumentary Integumentary: As Per HPI, Skin Pain, Wounds - Neurological Neurological: As Per HPI, Tingling - Psychiatric Psychiatric: absent: As Per HPI, Abnormal Sleep Pattern, Anhedonia, Anxiety, Auditory Hallucinations, Behavioral Changes, Change in Appetite, Change in Libido, Confusion, Depression, Difficulty Concentrating, Hallucinations, Homicidal Ideation, Hopelessness, Irritability, Memory Loss, Mood Swings, Panic Attacks, Paranoia, Suicidal Ideation, Visual Hallucinations, Tactile Hallucinations, Other - Endocrine Endocrine: As Per HPI - Hematologic/Lymphatic Hematologic: absent: As Per HPI, Easy Bleeding, Easy Bruising, Lymphadenopathy, Other Past Patient History - Past Medical History & Family History Past Medical History?: Yes - Past Social History Smoking Status: Former Smoker - CARDIAC Hx Hypercholesterolemia: Yes Hx Hypertension: Yes - PULMONARY Hx Respiratory Disorders: No - NEUROLOGICAL Hx Neurological Disorder: No - HEENT Hx HEENT Problems: No - RENAL Hx Chronic Kidney Disease: No - ENDOCRINE/METABOLIC Hx Endocrine Disorders: Yes Hx Diabetes Mellitus Type 2: Yes - HEMATOLOGICAL/ONCOLOGICAL Hx Anemia: Yes (Iron deficiency anemia) - INTEGUMENTARY Hx Dermatological Problems: No - MUSCULOSKELETAL/RHEUMATOLOGICAL Hx Musculoskeletal Disorders: No Hx Falls: No - GASTROINTESTINAL Hx Gastrointestinal Disorders: Yes Hx Ulcer: Yes - GENITOURINARY/GYNECOLOGICAL Hx Genitourinary Disorders: Yes Hx Reproductive Disorders: Yes (MENORRHAGIA) - PSYCHIATRIC Hx Substance Use: No - SURGICAL HISTORY Hx Surgeries: Yes Hx Section: Yes (X1) Hx Femoral-Popliteal Bypass Graft: Yes Hx Gastric Bypass Surgery: Yes Hx Hysterectomy: Yes - ANESTHESIA Hx Anesthesia: Yes Hx Anesthesia Reactions: No Hx Malignant Hyperthermia: No Meds Allergies/Adverse Reactions: Allergies Allergy/AdvReac Type Severity Reaction Status Date / Time shellfish derived Allergy Intermediate RASH Verified 08/05/16 09:13 - Medications Medications: Current Medications Glipizide (Glucotrol) 10 mg PO BIDAC ASIF Last Admin: 08/05/16 20:51 Dose: 10 mg Heparin Sodium (Porcine) (Heparin) 5,000 units SC Q12 ASIF Hydralazine HCl (Apresoline) 10 mg PO BID ASIF Last Admin: 08/05/16 20:51 Dose: 10 mg Hydralazine HCl (Apresoline) 2.5 mg IVP Q15MIN PRN PRN Reason: Systolic Blood Pressure Last Admin: 08/06/16 10:52 Dose: 2.5 mg Hydrochlorothiazide (Hydrodiuril) 25 mg PO DAILY [facility] Piperacillin Sod/Tazobactam (Sod 3.375 gm/ Sodium Chloride) 100 mls @ 200 mls/ hr IVPB Q6 [facility] Last Admin: 08/06/16 06:05 Dose: 200 mls/hr Vancomycin HCl 1 gm/ Sodium (Chloride) 250 mls @ 166.7 mls/hr IVPB Q12 [facility] Last Admin: 08/06/16 10:30 Dose: 0 mls Dextrose/Sodium Chloride (Dextrose 5%/0.45% Ns 1000 Ml) 1,000 mls @ 75 mls/hr IV .[id number] [facility] Last Admin: 08/06/16 00:05 Dose: 75 mls/hr Insulin Aspart (Novolog) 0 unit SC ACHS [facility] PRN Reason: Protocol Last Admin: 08/06/16 08:15 Dose: Not Given Labetalol HCl (Trandate) 5 mg IVP Q5M PRN PRN Reason: Systolic Blood Pressure Stop: 08/06/16 11:28 Last Admin: 08/06/16 09:42 Dose: 5 mg Oxycodone/Acetaminophen (Percocet 5/325 Mg Tab) 2 tab PO Q4H PRN PRN Reason: Pain, moderate (4-7) Stop: 08/09/16 09:07 Pneumococcal Polyvalent Vaccine (Pneumovax 23 Vaccine) 0.5 ml IM .ONCE ONE Stop: 08/07/16 10:01 Saccharomyces Boulardii (Florastor) 250 mg PO BID [facility] Last Admin: 08/05/16 22:15 Dose: 250 mg Physical Exam - Constitutional Appears: Non-toxic, Chronically Ill - Head Exam Head Exam: NORMOCEPHALIC - Eye Exam Eye Exam: PERRL. absent: Scleral icterus - ENT Exam ENT Exam: Mucous Membranes Dry - Neck Exam Neck exam: Negative for: Lymphadenopathy - Respiratory Exam Respiratory Exam: Decreased Breath Sounds, Rhonchi - Cardiovascular Exam Cardiovascular Exam: REGULAR RHYTHM, +S1, +S2 - GI/Abdominal Exam GI & Abdominal Exam: Diminished Bowel Sounds, Soft. absent: Tenderness - Rectal Exam Rectal Exam: Deferred - Exam Exam: NORMAL INSPECTION - Extremities Exam Extremities exam: Positive for: pedal pulses present. Negative for: calf tenderness Additional comments: DERMATOLOGIC: Right plantar foot ulceration with hyperkeratotic margin, fibrotic wound base, mild purulent drainage, mild undermining, no erythema or streaking noted. The surrounding skin is intact with xerosis present. 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, skin temperature is normal, there is mild edema at the wound site NEUROLOGIC: Protective sensation decreased ORTHOPEDIC: Charcot deformity with rocker bottom foot and prominent bone plantarly at the ulceration site - Back Exam Back exam: absent: CVA tenderness (L), CVA tenderness (R), paraspinal tenderness - Neurological Exam Neurological exam: Alert, CN II-XII Intact, Oriented x3, Reflexes Normal - Psychiatric Exam Psychiatric exam: Normal Mood - Skin Skin Exam: Dry Results - Vital Signs Recent Vital Signs: Last Vital Signs Temp 97.7 F 08/06/16 09:01 Pulse 6 L 08/06/16 10:45 Resp 13 08/06/16 10:45 BP 185/74 H 08/06/16 10:45 Pulse Ox 98 08/06/16 10:45 - Labs Result Diagrams: 08/06/16 07:10 08/06/16 07:10 Labs: Laboratory Results - last 24 hr 08/05/16 08/05/16 08/06/16 17:52 21:29 02:06 WBC RBC Hgb Hct MCV MCH MCHC RDW Plt Count MPV Neut % (Auto) Lymph % (Auto) [place] % (Auto) Eos % (Auto) Baso % (Auto) Neut # Lymph # [place] # Eos # Baso # Retic Count PT INR APTT Sodium Potassium Chloride Carbon Dioxide Anion Gap BUN Creatinine Est GFR ( Amer) Est GFR (Non-Af Amer) POC Glucose (mg/dL) 281 H 180 H 75 Random Glucose Hemoglobin A1c Calcium Phosphorus Magnesium Iron TIBC % Saturation Ferritin Total Bilirubin AST ALT Alkaline Phosphatase Total Protein Albumin Globulin Albumin/Globulin Ratio Triglycerides Cholesterol LDL Cholesterol Direct HDL Cholesterol Hepatitis A IgM Ab Hep Bs Antigen Hep B Core IgM Ab Hepatitis C Antibody 08/06/16 08/06/16 08/06/16 07:10 07:10 07:10 WBC 5.3 RBC 4.03 Hgb 10.7 L Hct 33.3 L MCV 82.6 MCH 26.5 L MCHC 32.1 L RDW 13.7 Plt Count 194 MPV 10.5 Neut % (Auto) 42.9 L Lymph % (Auto) 44.6 H [place] % (Auto) 7.2 Eos % (Auto) 4.2 H Baso % (Auto) 1.1 Neut # 2.3 Lymph # 2.3 [place] # 0.4 Eos # 0.2 Baso # 0.1 Retic Count PT INR APTT Sodium 139 Potassium 4.2 Chloride 106 Carbon Dioxide 24 Anion Gap 13 BUN 22 H Creatinine 1.2 Est GFR ( Amer) 58 Est GFR (Non-Af Amer) 48 POC Glucose (mg/dL) Random Glucose 73 Hemoglobin A1c 7.2 H Calcium 8.9 Phosphorus 4.6 H Magnesium 1.8 Iron TIBC % Saturation Ferritin 106.0 Total Bilirubin 0.5 AST 32 ALT 47 Alkaline Phosphatase 114 Total Protein 7.1 Albumin 3.8 Globulin 3.3 Albumin/Globulin Ratio 1.1 Triglycerides 107 D Cholesterol 180 LDL Cholesterol Direct 74 HDL Cholesterol 49 Hepatitis A IgM Ab Hep Bs Antigen Hep B Core IgM Ab Hepatitis C Antibody 08/06/16 08/06/16 08/06/16 07:10 07:10 07:10 WBC RBC Hgb Hct MCV MCH MCHC RDW Plt Count MPV Neut % (Auto) Lymph % (Auto) [place] % (Auto) Eos % (Auto) Baso % (Auto) Neut # Lymph # [place] # Eos # Baso # Retic Count 0.8 D PT 11.1 INR 1.0 APTT 28 Sodium Potassium Chloride Carbon Dioxide Anion Gap BUN Creatinine Est GFR ( Amer) Est GFR (Non-Af Amer) POC Glucose (mg/dL) Random Glucose Hemoglobin A1c Calcium Phosphorus Magnesium Iron TIBC % Saturation Ferritin Total Bilirubin AST ALT Alkaline Phosphatase Total Protein Albumin Globulin Albumin/Globulin Ratio Triglycerides Cholesterol LDL Cholesterol Direct HDL Cholesterol Hepatitis A IgM Ab Negative Hep Bs Antigen Negative Hep B Core IgM Ab Negative Hepatitis C Antibody Negative 08/06/16 08/06/16 07:10 07:21 WBC RBC Hgb Hct MCV MCH MCHC RDW Plt Count MPV Neut % (Auto) Lymph % (Auto) [place] % (Auto) Eos % (Auto) Baso % (Auto) Neut # Lymph # [place] # Eos # Baso # Retic Count PT INR APTT Sodium Potassium Chloride Carbon Dioxide Anion Gap BUN Creatinine Est GFR ( Amer) Est GFR (Non-Af Amer) POC Glucose (mg/dL) 88 Random Glucose Hemoglobin A1c Calcium Phosphorus Magnesium Iron 95 TIBC 307 % Saturation 31 Ferritin Total Bilirubin AST ALT Alkaline Phosphatase Total Protein Albumin Globulin Albumin/Globulin Ratio Triglycerides Cholesterol LDL Cholesterol Direct HDL Cholesterol Hepatitis A IgM Ab Hep Bs Antigen Hep B Core IgM Ab Hepatitis C Antibody Assessment & Plan (1) Foot ulcer Status: Acute - Assessment and Plan (Free Text) Assessment: for or debridement ciont iv antibiotics consider MRI
--- NOTE | 2016-08-06 11:48 | OP ---
PROCEDURE DATE: 08/05/2016 SURGEON: Dr. Cornell White JOINT CREASER: Gabby Anderson, PGY-2 PREOPERATIVE DIAGNOSES: Right foot Charcot deformity with chronic ulceration. POSTOPERATIVE DIAGNOSES: Right foot Charcot deformity with chronic ulceration. NAME OF PROCEDURE: Right foot debridement of wound and bone and bone biopsy. ANESTHESIA: General LMA. ANESTHESIOLOGIST: Dr. Abernathy INDICATIONS: The patient is a 51-year-old female with the above-mentioned diagnosis. The patient has exhausted conservative treatment at this time and is now requesting surgical intervention. The patient signed the consent after careful explanation of risks, benefits, complications and alternatives for surgical procedure. No guarantees were given nor implied. The patient has been receiving IV vancomycin and Zosyn. Therefore, no additional antibiotics were given. PREPARATION: The patient was brought into the operating room and placed on the operating room table in supine position. After induction of IV sedation, a total of 16 mL of a 1:1 mixture of 0.5% Marcaine and 1% lidocaine plain was injected in a local block fashion to the right foot. The foot was then prepped and draped in the usual sterile manner and the procedure began. DESCRIPTION OF PROCEDURE: Attention was directed to the plantar aspect of the right foot, where a 2 cm x 2 cm full thickness ulceration was noted. Using a # 15 blade, a full thickness incision was created medially and laterally through the central portion of the wound in order to open up the space and allow the instruments into the wound. Using a [place] elevator, the soft tissue was carefully reflected off of the prominent plantar bone. Using the Misonix handpiece, the bony prominence just below the wound site was debrided. This handpiece was utilized until the bone was noted to be smooth and normal contoured. This contour was checked under fluoroscopy. At this time, the wound was palpated and was noted to have no underlying pressure points from the prominent bone beneath. Next, a bone curette was utilized to remove a small sample of bone to be sent for biopsy, and one for microbiology. The wound was copiously irrigated with normal sterile saline. The incision site was sutured using 4-0 Prolene. The wound was dressed using Xeroform, 4 x 4s, ABD, Kerlix and a posterior splint was applied. POSTOPERATIVE CONDITION: The patient tolerated the anesthesia and procedure well and was escorted to the recovery room with vital signs stable and neurovascular status intact to the right foot. This patient is an inpatient and will be followed by Dr. White here on the floor. Gabby Anderson DPM Cornell White DPM cc: [id number] TT: 08/06/2016 11:47:23 en MTDD
[2016-08-06] MEDS: Saccharomyces Boulardi 250 mg Cap PO SCH ×2 (11:57→18:34)
--- NOTE | 2016-08-06 14:22 | CP.PCM.PN ---
<Robbin Arceo - Last Filed: 08/06/16 14:29> Subjective - Date & Time of Evaluation Date of Evaluation: 08/06/16 Time of Evaluation: 14:20 - Subjective Subjective: Medicine progress note. Attending: Dr. Taylor Pt seen and examined at bedside. No acute distress. No events overnight. Pt denies fevers, chills, vomiting, diarrhea, chest pain, sob. S/P debridement and bone biopsy. Plan for PICC line order tomorrow. ID is following. Objective - Vital Signs/Intake and Output Vital Signs (last 24 hours): Temp Pulse Resp BP Pulse Ox 97.1 F L 68 17 156/73 H 99 08/06/16 11:15 08/06/16 11:15 08/06/16 11:15 08/06/16 11:54 08/06/16 11:15 Intake and Output: 08/06/16 08/06/16 06:59 18:59 Intake Total 1100 Output Total 1125 Balance 1100 -1125 - Medications Medications: Current Medications Glipizide (Glucotrol) 10 mg PO BIDAC [facility] Last Admin: 08/05/16 20:51 Dose: 10 mg Heparin Sodium (Porcine) (Heparin) 5,000 units SC Q12 [facility] Last Admin: 08/06/16 11:20 Dose: Not Given Hydralazine HCl (Apresoline) 10 mg PO BID [facility] Last Admin: 08/06/16 11:57 Dose: Not Given Hydralazine HCl (Apresoline) 2.5 mg IVP Q15MIN PRN PRN Reason: Systolic Blood Pressure Last Admin: 08/06/16 10:52 Dose: 2.5 mg Hydrochlorothiazide (Hydrodiuril) 25 mg PO DAILY [facility] Last Admin: 08/06/16 11:57 Dose: Not Given Piperacillin Sod/Tazobactam (Sod 3.375 gm/ Sodium Chloride) 100 mls @ 200 mls/ hr IVPB Q6 [facility] Last Admin: 08/06/16 11:36 Dose: 200 mls/hr Vancomycin HCl 1 gm/ Sodium (Chloride) 250 mls @ 166.7 mls/hr IVPB Q12 [facility] Last Admin: 08/06/16 10:30 Dose: 0 mls Dextrose/Sodium Chloride (Dextrose 5%/0.45% Ns 1000 Ml) 1,000 mls @ 75 mls/hr IV .[id number] [facility] Last Admin: 08/06/16 14:14 Dose: Not Given Insulin Aspart (Novolog) 0 unit SC ACHS [facility] PRN Reason: Protocol Last Admin: 08/06/16 11:23 Dose: Not Given Oxycodone/Acetaminophen (Percocet 5/325 Mg Tab) 2 tab PO Q4H PRN PRN Reason: Pain, moderate (4-7) Stop: 08/09/16 09:07 Pneumococcal Polyvalent Vaccine (Pneumovax 23 Vaccine) 0.5 ml IM .ONCE ONE Stop: 08/07/16 10:01 Saccharomyces Boulardii (Florastor) 250 mg PO BID [facility] Last Admin: 08/06/16 11:57 Dose: Not Given - Labs Labs: 08/06/16 07:10 08/06/16 07:10 PT 11.1 SECONDS (9.7-12.2) 08/06/16 07:10 INR 1.0 08/06/16 07:10 APTT 28 SECONDS (21-34) 08/06/16 07:10 - Constitutional Appears: Non-toxic, No Acute Distress - Head Exam Head Exam: ATRAUMATIC, NORMAL INSPECTION, NORMOCEPHALIC - Eye Exam Eye Exam: EOMI - ENT Exam ENT Exam: Mucous Membranes Moist - Neck Exam Neck Exam: Full ROM, Normal Inspection. absent: Lymphadenopathy - Respiratory Exam Respiratory Exam: NORMAL BREATHING PATTERN. absent: Respiratory Distress - Cardiovascular Exam Cardiovascular Exam: +S1, +S2 - GI/Abdominal Exam GI & Abdominal Exam: Soft, Normal Bowel Sounds. absent: Tenderness - Extremities Exam Extremities Exam: absent: Full ROM, Normal Inspection Additional comments: right foot in cast, s/p debridement - Back Exam Back Exam: NORMAL INSPECTION - Neurological Exam Neurological Exam: Alert, Awake, Oriented x3 - Psychiatric Exam Psychiatric exam: Normal Affect, Normal Mood - Skin Skin Exam: Dry, Intact, Normal Color, Warm Assessment and Plan - Assessment and Plan (Free Text) Assessment: This is a 51 year old female with past medical hx of PAD, DM, iron deficiency anemia, HTN, hyperlipidemia presenting with infected diabetic foot ulcer, suspicious for osteomyelitis 1. Diabetic R plantar foot ulcer -Patient admitted to med/surg -rule out osteomyelitis -MRI shows prominent reactive bone marrow edema suspicious for osteo -X ray shows prominent soft tissue swelling lateral midfoot, patchy increased sclerosis 5th metatarsal shaft which may represent acute osteomyelitis, deformity with bony ankylosis and sclerosis at level of 2nd metatarsal bases and corresponding tarsal bones, near complete ankylosis of visualized midfoot, productive change with cortical sclerosis at volar midfoot, diffuse osteopenia - Vancomycin 1gm IVPB BID day 2 - Zosyn 3.375 IVPB Q6H day 2 - f/u blood culture -wound culture shows gram negative steven/gram positive cocci - Dr. White podiatry following- patient is s/p debridement 08/06/16 - ID Dr. Fabian consulted- f/u recs -plan for picc tomorrow 2. Hx of PAD -Plavix 75mg po on hold for procedure on 08/06/16 3. Hx of Hypertension -Hydralazine PRN -labetaol PRN - HCTZ 25mg PO daily 4. Hx of DM2 -continue home glipizide -ISS 5. Hx of HLD -f/u lipid panel 6. Hx of Iron Deficiency Anemia -continue to monitor 7. GI/DVT PPX -heparin 5000 q 12 -regular diet after return from [facility] us discussed with Dr. Taylor - <Glenys Taylor V - Last Filed: 08/06/16 23:07> Objective - Vital Signs/Intake and Output Vital Signs (last 24 hours): Temp Pulse Resp BP Pulse Ox 98.1 F 74 20 114/53 L 100 08/06/16 16:00 08/06/16 16:00 08/06/16 16:00 08/06/16 16:00 08/06/16 16:00 Intake and Output: 08/06/16 08/07/16 18:59 06:59 Intake Total 550 950 Output Total 1125 Balance -575 950 - Medications Medications: Current Medications Glipizide (Glucotrol) 10 mg PO BIDAC [facility] Last Admin: 08/05/16 20:51 Dose: 10 mg Heparin Sodium (Porcine) (Heparin) 5,000 units SC Q12 [facility] Last Admin: 08/06/16 21:12 Dose: 5,000 units Hydralazine HCl (Apresoline) 10 mg PO BID [facility] Last Admin: 08/06/16 18:37 Dose: Not Given Hydralazine HCl (Apresoline) 2.5 mg IVP Q15MIN PRN PRN Reason: Systolic Blood Pressure Last Admin: 08/06/16 10:52 Dose: 2.5 mg Hydrochlorothiazide (Hydrodiuril) 25 mg PO DAILY [facility] Last Admin: 08/06/16 11:57 Dose: Not Given Piperacillin Sod/Tazobactam (Sod 3.375 gm/ Sodium Chloride) 100 mls @ 200 mls/ hr IVPB Q6 [facility] Last Admin: 08/06/16 18:34 Dose: 200 mls/hr Vancomycin HCl 1 gm/ Sodium (Chloride) 250 mls @ 166.7 mls/hr IVPB Q12 [facility] Last Admin: 08/06/16 21:12 Dose: 166.7 mls/hr Dextrose/Sodium Chloride (Dextrose 5%/0.45% Ns 1000 Ml) 1,000 mls @ 75 mls/hr IV .[id number] [facility] Last Admin: 08/06/16 21:15 Dose: 75 mls/hr Insulin Aspart (Novolog) 0 unit SC ACHS [facility] PRN Reason: Protocol Last Admin: 08/06/16 22:36 Dose: Not Given Oxycodone/Acetaminophen (Percocet 5/325 Mg Tab) 2 tab PO Q4H PRN PRN Reason: Pain, moderate (4-7) Stop: 08/09/16 09:07 Pneumococcal Polyvalent Vaccine (Pneumovax 23 Vaccine) 0.5 ml IM .ONCE ONE Stop: 08/07/16 10:01 Saccharomyces Boulardii (Florastor) 250 mg PO BID [facility] Last Admin: 08/06/16 18:34 Dose: 250 mg - Labs Labs: 08/06/16 07:10 08/06/16 07:10 PT 11.1 SECONDS (9.7-12.2) 08/06/16 07:10 INR 1.0 08/06/16 07:10 APTT 28 SECONDS (21-34) 08/06/16 07:10 Attending/Attestation - Attestation I have personally seen and examined this patient.: Yes I have fully participated in the care of the patient.: Yes I have reviewed all pertinent clinical information, including history, physical exam and plan: Yes Notes (Text): Patient seen, evaluated and case discussed with day-time resident. Patient seen post wound debridement and biopsy this afternoon. Patient's blood pressure is better controlled asymptomatic. Patient with a history of PAD (vascular stents b/l), diabetes (a1c: 7.2 controlled), iron deficiency anemia, hypertension, elevated cholestrol, hx of morbid obesity controlled s/p gastric bypass surgery comes in with a history of progressively worsening right diabetic ulcer for the past 6 weeks with associated purulent drainage, prescribed PO antibiotic but refractory, with history of prior osteomyelitis of the same heel about 4-5 years ago requiring IV Abx for 4 weeks. Infectious disease consulted given hx of prior osteomyelitis Cardiology consulted given hx of pad (requiring stents and on plavix) known to the patient. MRI foot completed and suggest several findings including acute osteomyelitis. Held Vanco this evening since trough was not collected. Ordered for random vanco level tomorrow Assessment/Plan 1) Diabetic R plantar foot ulcer * Patient admitted to med/surg * Suspicion for osteomyelitis given hx of diabetes and prior history, hx of PAD * f/u MRI R foot w/ and w/out contrast * f/u R foot x-ray official read * In the ED, patient received dose of Vancomycin and Zosyn; will hold Vancomycin 1gm IVPB Q12 hours and Zosyn 3.375 IVPB Q6H * f/u blood culture * f/u wound culture * f/u wound debridment and bone culture * Podiatry consult (Dr. White) on board-->patient scheduled for wound debridement and bone biopsy * Infectious disease (Dr. Fabian) on consult given prior hx of osteomyelitis 2) Peripheral vascular disease * Plavix 75mg po daily on hold for procedure on 08/06/16 * Patient reports has LOY study last month with cardiology, and reports it was normal 3) Hypertension * Hydralazine 10mg PO BID * HCTZ 25mg PO daily * Monitor vital signs 4) Diabetes type 2 * hx of morbid obesity; s/p gastric bypass surgery * a1c: 7.2 * Accuchecks QAC and HS * RISS ACHS low dose 5)Hypercholesterolemia * patient has no home med * hx of gastric bypass surgery * Lipid panel within normal limit 6) Hx of Iron Deficiency Anemia * H&H stable * Monitor * patient is not on any current iron supplementation; used to see Dr. Engle outpatient 7) Transaminitis * Ordered for hepatitis panel: negative * Abdominal US: echogenic liver and cholelithiasis (official report available in EMR * monitor liver function tests; normalized 8) PPX * consistent carb heart healthy diet * PT/OT recommended after debridement tomorrow 08/06 * possible PICC line placement tomorrow
--- NOTE | 2016-08-06 14:51 | US ---
HISTORY: elevated LFTs COMPARISON: None available TECHNIQUE: Sonographic evaluation of the abdomen. FINDINGS: LIVER: Measures 13.4 cm in sagittal dimension. Echogenic liver may be seen in setting of hepatic parenchymal disease or fatty infiltration. No focal hepatic mass identified. The main portal vein appears patent with normal directional flow. No intrahepatic bile duct dilatation. GALLBLADDER: Gallstones. No gallbladder wall thickening. Negative sonographic Zavala's sign as assessed by the shredded filler machine wrapper layer. COMMON BILE DUCT: Measures 3 mm. No stones. No dilatation. PANCREAS: Not well visualized. RIGHT KIDNEY: Measures 11.4 x 6.0 x 6.3cm. No obstructing calculus or hydronephrosis identified. LEFT KIDNEY: Measures 12.0 x 6.2 x 5.5cm. No obstructing calculus or hydronephrosis identified. SPLEEN: Measures approximately 9.1 cm. AORTA: Limited views appear unremarkable. IVC: Limited views appear unremarkable. OTHER FINDINGS: None. IMPRESSION: Echogenic liver may be seen in setting of hepatic parenchymal disease or fatty infiltration. Cholelithiasis.
[2016-08-06 17:15] VITALS: RESP 20
--- NOTE | 2016-08-06 17:21 | CP.PCM.PCO ---
Physician Communication Note - Physician Communication Note Physician Communication Note: patient was off the floor for procedure. I lupe return for evaluation
[2016-08-07] MEDS: Piperacillin/Tazobact 3.375 GM in Sodium Chloride 100 ML IVPB SCH ×4 (00:06→18:05)
[2016-08-07 08:15] LABS: BASO # 0.1 K/uL (0.0-0.2); BASO % 1.2 % (0.0-2.0); EOS # 0.2 K/uL (0.0-0.7); HEMATOCRIT 28.4 % (34.0-47.0); LYMPH # 2.1 K/uL (1.0-4.3); LYMPH % 34.9 % (20.0-40.0); MEAN CELL VOLUME 82.4 fL (81.0-99.0); MEAN CORPUSCULAR HEMOGLOBIN 26.8 pg (27.0-31.0); MEAN CORPUSCULAR HGB CONC 32.5 g/dL (33.0-37.0); MEAN PLATELET VOLUME 10.4 fL (7.2-11.7); MONO # 0.5 K/uL (0.0-0.8); MONO % 7.8 % (0.0-10.0); RED CELL DISTRIBUTION WIDTH 13.4 % (11.5-14.5); WHITE BLOOD COUNT 6.1 K/uL (4.8-10.8)
[2016-08-07] MEDS: (Novolog) Insulin Aspart, Recombinant 100 u/ml 10 ml vial SC SCH ×4 (08:28→22:05)
[2016-08-07 09:21] LABS: POTASSIUM 4.4 mmol/L (3.6-5.2)
[2016-08-07 09:24] LABS: BILIRUBIN,TOTAL 0.5 mg/dL (0.2-1.3); CALCIUM 8.4 mg/dl (8.6-10.4); PHOSPHOROUS 5.2 mg/dL (2.5-4.5); TOTAL PROTEIN 6.2 g/dL (6.3-8.3)
[2016-08-07 09:25] LABS: MAGNESIUM 1.6 mg/dL (1.6-2.3)
--- NOTE | 2016-08-07 09:53 | CP.PCM.PN ---
Subjective - Date & Time of Evaluation Date of Evaluation: 08/07/16 Time of Evaluation: 09:49 - Subjective Subjective: Patient seen and evaluated at bedside with attending, Dr. White. Patient is POD # 1 for right plantar foot debridement. Patient is resting comfortably this morning, no acute distress. She denies pain to the surgical site. Bandage is clean dry and intact to the RLE. She denies n/v/f/c/sob at this time. Objective - Vital Signs/Intake and Output Vital Signs (last 24 hours): Temp Pulse Resp BP Pulse Ox 98 F 63 20 159/78 H 100 08/07/16 08:39 08/07/16 08:39 08/07/16 08:39 08/07/16 08:39 08/07/16 08:39 Intake and Output: 08/07/16 08/07/16 06:59 18:59 Intake Total 1290 Balance 1290 - Medications Medications: Current Medications Glipizide (Glucotrol) 10 mg PO BIDAC [facility] Last Admin: 08/05/16 20:51 Dose: 10 mg Heparin Sodium (Porcine) (Heparin) 5,000 units SC Q12 [facility] Last Admin: 08/06/16 21:12 Dose: 5,000 units Hydralazine HCl (Apresoline) 10 mg PO BID [facility] Last Admin: 08/06/16 18:37 Dose: Not Given Hydralazine HCl (Apresoline) 2.5 mg IVP Q15MIN PRN PRN Reason: Systolic Blood Pressure Last Admin: 08/06/16 10:52 Dose: 2.5 mg Hydrochlorothiazide (Hydrodiuril) 25 mg PO DAILY [facility] Last Admin: 08/06/16 11:57 Dose: Not Given Piperacillin Sod/Tazobactam (Sod 3.375 gm/ Sodium Chloride) 100 mls @ 200 mls/ hr IVPB Q6 [facility] Last Admin: 08/07/16 05:44 Dose: 200 mls/hr Vancomycin HCl 1 gm/ Sodium (Chloride) 250 mls @ 166.7 mls/hr IVPB Q12 [facility] Last Admin: 08/06/16 21:12 Dose: 166.7 mls/hr Insulin Aspart (Novolog) 0 unit SC ACHS [facility] PRN Reason: Protocol Last Admin: 08/07/16 08:28 Dose: Not Given Oxycodone/Acetaminophen (Percocet 5/325 Mg Tab) 2 tab PO Q4H PRN PRN Reason: Pain, moderate (4-7) Stop: 08/09/16 09:07 Last Admin: 08/07/16 02:00 Dose: 2 tab Pneumococcal Polyvalent Vaccine (Pneumovax 23 Vaccine) 0.5 ml IM .ONCE ONE Stop: 08/07/16 10:01 Saccharomyces Boulardii (Florastor) 250 mg PO BID [facility] Last Admin: 08/06/16 18:34 Dose: 250 mg - Labs Labs: 08/07/16 08:04 08/07/16 08:04 PT 11.1 SECONDS (9.7-12.2) 08/06/16 07:10 INR 1.0 08/06/16 07:10 APTT 28 SECONDS (21-34) 08/06/16 07:10 - Constitutional Appears: Well, Non-toxic, No Acute Distress - Neurological Exam Neurological Exam: Oriented x3 - Psychiatric Exam Psychiatric exam: Normal Affect, Normal Mood - Additional Findings Additional findings: DERMATOLOGIC: Right foot surgical site with mild sanguinous drainage, wound edges intact, no erythema, no purulence, no streaking. Surrounding skin is intact. VASCULAR: DP/PT pulses are 1/4, [employer]<3 seconds, skin temperature is normal. Mild edema of the surgical site. NEUROLOGIC: Protective sensation absent ORTHOPEDIC: Negative pain on palpation to the surgical site. There is decreased bony prominence at the wound site. Patient has moderate rocker bottom deformity from [place] Assessment and Plan - Assessment and Plan (Free Text) Assessment: 51 year old female POD#1 for right foot debridement of 5th metatarsal bone and wound debridement Plan: Patient seen and evaluated with attending, Dr. White Patients wound site stable at this time Foot dressed with xeroform, DSD, ABD, and posterior splint Patient to remain NWB to the [facility] Podiatry will continue to follow
[2016-08-07] MEDS ORDERED: Pneumococcal 23-Valent Vaccine IM ONE (10:00)
[2016-08-07] MEDS: Saccharomyces Boulardi 250 mg Cap PO SCH ×2 (10:46→18:05)
--- NOTE | 2016-08-07 15:26 | CP.PCM.PN ---
Subjective - Date & Time of Evaluation Date of Evaluation: 08/07/16 Time of Evaluation: 07:00 - Subjective Subjective: MRI shows prominent reactive bone marrow edema suspicious for osteo Dr devi walton in progress c/s + for enterobacter and enterococcus Objective - Vital Signs/Intake and Output Vital Signs (last 24 hours): Temp Pulse Resp BP Pulse Ox 98 F 63 20 159/78 H 100 08/07/16 08:39 08/07/16 08:39 08/07/16 08:39 08/07/16 08:39 08/07/16 08:39 Intake and Output: 08/07/16 08/07/16 06:59 18:59 Intake Total 1290 Balance 1290 - Medications Medications: Current Medications Glipizide (Glucotrol) 10 mg PO BIDAC [facility] Last Admin: 08/05/16 20:51 Dose: 10 mg Heparin Sodium (Porcine) (Heparin) 5,000 units SC Q12 [facility] Last Admin: 08/07/16 10:46 Dose: 5,000 units Hydralazine HCl (Apresoline) 10 mg PO BID [facility] Last Admin: 08/07/16 10:47 Dose: 10 mg Hydralazine HCl (Apresoline) 2.5 mg IVP Q15MIN PRN PRN Reason: Systolic Blood Pressure Last Admin: 08/06/16 10:52 Dose: 2.5 mg Hydrochlorothiazide (Hydrodiuril) 25 mg PO DAILY [facility] Last Admin: 08/07/16 10:46 Dose: 25 mg Piperacillin Sod/Tazobactam (Sod 3.375 gm/ Sodium Chloride) 100 mls @ 200 mls/ hr IVPB Q6 [facility] Last Admin: 08/07/16 11:49 Dose: 200 mls/hr Vancomycin HCl 1 gm/ Sodium (Chloride) 250 mls @ 166.7 mls/hr IVPB Q12 [facility] Last Admin: 08/06/16 21:12 Dose: 166.7 mls/hr Insulin Aspart (Novolog) 0 unit SC ACHS [facility] PRN Reason: Protocol Last Admin: 08/07/16 12:11 Dose: Not Given Oxycodone/Acetaminophen (Percocet 5/325 Mg Tab) 2 tab PO Q4H PRN PRN Reason: Pain, moderate (4-7) Stop: 08/09/16 09:07 Last Admin: 08/07/16 02:00 Dose: 2 tab Saccharomyces Boulardii (Florastor) 250 mg PO BID [facility] Last Admin: 08/07/16 10:46 Dose: 250 mg - Labs Labs: 08/07/16 08:04 08/07/16 08:04 PT 11.1 SECONDS (9.7-12.2) 08/06/16 07:10 INR 1.0 08/06/16 07:10 APTT 28 SECONDS (21-34) 08/06/16 07:10 - Constitutional Appears: Non-toxic, Chronically Ill - Head Exam Head Exam: NORMOCEPHALIC - Eye Exam Eye Exam: PERRL. absent: Scleral icterus - ENT Exam ENT Exam: Mucous Membranes Dry - Neck Exam Neck Exam: absent: Lymphadenopathy - Respiratory Exam Respiratory Exam: Decreased Breath Sounds - Cardiovascular Exam Cardiovascular Exam: REGULAR RHYTHM - GI/Abdominal Exam GI & Abdominal Exam: Distended, Soft - Rectal Exam Rectal Exam: Deferred - Exam Exam: NORMAL INSPECTION - Extremities Exam Extremities Exam: Pedal Edema, Tenderness - Back Exam Back Exam: absent: CVA tenderness (L), CVA tenderness (R) - Neurological Exam Neurological Exam: Alert, Awake, CN II-XII Intact Assessment and Plan (1) Foot ulcer Status: Acute - Assessment and Plan (Free Text) Assessment: possible OM iv rx in progress
--- NOTE | 2016-08-07 17:27 | CP.PCM.PN ---
<Robbin Arceo - Last Filed: 08/07/16 17:29> Subjective - Date & Time of Evaluation Date of Evaluation: 08/07/16 Time of Evaluation: 17:25 - Subjective Subjective: Medicine progress note. Attending: Dr. Taylor Pt seen and examined at bedside. No acute distress. No events overnight. No complaints. Bone biopsy negative for osteo. Objective - Vital Signs/Intake and Output Vital Signs (last 24 hours): Temp Pulse Resp BP Pulse Ox 98 F 63 20 159/78 H 100 08/07/16 08:39 08/07/16 08:39 08/07/16 08:39 08/07/16 08:39 08/07/16 08:39 Intake and Output: 08/07/16 08/07/16 06:59 18:59 Intake Total 1290 Balance 1290 - Medications Medications: Current Medications Glipizide (Glucotrol) 10 mg PO BIDAC [facility] Last Admin: 08/05/16 20:51 Dose: 10 mg Heparin Sodium (Porcine) (Heparin) 5,000 units SC Q12 [facility] Last Admin: 08/07/16 10:46 Dose: 5,000 units Hydralazine HCl (Apresoline) 10 mg PO BID [facility] Last Admin: 08/07/16 10:47 Dose: 10 mg Hydralazine HCl (Apresoline) 2.5 mg IVP Q15MIN PRN PRN Reason: Systolic Blood Pressure Last Admin: 08/06/16 10:52 Dose: 2.5 mg Hydrochlorothiazide (Hydrodiuril) 25 mg PO DAILY [facility] Last Admin: 08/07/16 10:46 Dose: 25 mg Piperacillin Sod/Tazobactam (Sod 3.375 gm/ Sodium Chloride) 100 mls @ 200 mls/ hr IVPB Q6 [facility] Last Admin: 08/07/16 11:49 Dose: 200 mls/hr Vancomycin HCl 1 gm/ Sodium (Chloride) 250 mls @ 166.7 mls/hr IVPB Q12 [facility] Last Admin: 08/06/16 21:12 Dose: 166.7 mls/hr Insulin Aspart (Novolog) 0 unit SC ACHS [facility] PRN Reason: Protocol Last Admin: 08/07/16 17:00 Dose: 1 unit Oxycodone/Acetaminophen (Percocet 5/325 Mg Tab) 2 tab PO Q4H PRN PRN Reason: Pain, moderate (4-7) Stop: 08/09/16 09:07 Last Admin: 08/07/16 02:00 Dose: 2 tab Saccharomyces Boulardii (Florastor) 250 mg PO BID [facility] Last Admin: 08/07/16 10:46 Dose: 250 mg - Labs Labs: 08/07/16 08:04 08/07/16 08:04 PT 11.1 SECONDS (9.7-12.2) 08/06/16 07:10 INR 1.0 08/06/16 07:10 APTT 28 SECONDS (21-34) 08/06/16 07:10 - Constitutional Appears: Non-toxic, No Acute Distress - Head Exam Head Exam: ATRAUMATIC, NORMAL INSPECTION, NORMOCEPHALIC - Eye Exam Eye Exam: EOMI - ENT Exam ENT Exam: Mucous Membranes Moist - Neck Exam Neck Exam: Full ROM, Normal Inspection. absent: Lymphadenopathy - Respiratory Exam Respiratory Exam: NORMAL BREATHING PATTERN. absent: Respiratory Distress - Cardiovascular Exam Cardiovascular Exam: +S1, +S2 - GI/Abdominal Exam GI & Abdominal Exam: Soft, Normal Bowel Sounds. absent: Tenderness - Extremities Exam Extremities Exam: absent: Full ROM, Normal Inspection Additional comments: Right leg in cast - Neurological Exam Neurological Exam: Alert, Awake, Oriented x3 - Psychiatric Exam Psychiatric exam: Normal Affect, Normal Mood - Skin Skin Exam: Dry, Intact, Normal Color, Warm Assessment and Plan - Assessment and Plan (Free Text) Assessment: This is a 51 year old female with past medical hx of PAD, DM, iron deficiency anemia, HTN, hyperlipidemia presenting with infected diabetic foot ulcer, suspicious for osteomyelitis 1. Diabetic R plantar foot ulcer -Patient admitted to med/surg -rule out osteomyelitis -MRI shows prominent reactive bone marrow edema suspicious for osteo -X ray shows prominent soft tissue swelling lateral midfoot, patchy increased sclerosis 5th metatarsal shaft which may represent acute osteomyelitis, deformity with bony ankylosis and sclerosis at level of 2nd metatarsal bases and corresponding tarsal bones, near complete ankylosis of visualized midfoot, productive change with cortical sclerosis at volar midfoot, diffuse osteopenia - Vancomycin on hold for GFR - Zosyn 3.375 IVPB Q6H day 3 - f/u blood culture -wound culture shows gram negative steven/gram positive cocci - Dr. White podiatry following- patient is s/p debridement 08/06/16 - ID Dr. Fabian consulted- f/u recs -plan for picc possibly -bone biopsy negative for osteo 2. Hx of PAD -Plavix 75mg po on hold 3. Hx of Hypertension -Hydralazine PRN - HCTZ 25mg PO daily 4. Hx of DM2 -ISS 5. Hx of HLD -f/u lipid panel 6. Hx of Iron Deficiency Anemia -continue to monitor 7. GI/DVT PPX -heparin 5000 q 12 -regular diet discussed with Dr. Taylor <Glenys Taylor V - Last Filed: 11/07/16 00:42> Objective - Vital Signs/Intake and Output Vital Signs (last 24 hours): Temp Pulse Resp BP Pulse Ox 98.1 F 59 L 20 181/73 H 98 08/09/16 15:00 08/09/16 15:00 08/09/16 15:00 08/09/16 15:00 08/09/16 15:00 Intake and Output: 08/09/16 08/10/16 18:59 06:59 Intake Total 550 Balance 550 - Medications Medications: Current Medications Acetaminophen (Tylenol 325mg Tab) 650 mg PO Q6 PRN PRN Reason: Pain, Mild (1-3) Last Admin: 08/08/16 01:18 Dose: 650 mg Glipizide (Glucotrol) 10 mg PO BIDAC [facility] Last Admin: 08/05/16 20:51 Dose: 10 mg Hydralazine HCl (Apresoline) 10 mg PO BID [facility] Last Admin: 08/09/16 17:12 Dose: 10 mg Hydralazine HCl (Apresoline) 2.5 mg IVP Q15MIN PRN PRN Reason: Systolic Blood Pressure Last Admin: 08/06/16 10:52 Dose: 2.5 mg Hydrochlorothiazide (Hydrodiuril) 25 mg PO DAILY [facility] Last Admin: 08/09/16 09:56 Dose: 25 mg Piperacillin Sod/Tazobactam (Sod 3.375 gm/ Sodium Chloride) 100 mls @ 200 mls/ hr IVPB Q6 [facility] Last Admin: 08/09/16 17:12 Dose: 200 mls/hr Vancomycin HCl 1 gm/ Sodium (Chloride) 250 mls @ 166.7 mls/hr IVPB Q12 [facility] Last Admin: 08/06/16 21:12 Dose: 166.7 mls/hr Insulin Aspart (Novolog) 0 unit SC ACHS [facility] PRN Reason: Protocol Last Admin: 08/09/16 12:09 Dose: 2 unit Saccharomyces Boulardii (Florastor) 250 mg PO BID [facility] Last Admin: 08/09/16 17:12 Dose: 250 mg - Labs Labs: 08/09/16 07:07 08/09/16 07:07 PT 11.1 SECONDS (9.7-12.2) 08/06/16 07:10 INR 1.0 08/06/16 07:10 APTT 28 SECONDS (21-34) 08/06/16 07:10 Attending/Attestation - Attestation I have personally seen and examined this patient.: Yes I have fully participated in the care of the patient.: Yes I have reviewed all pertinent clinical information, including history, physical exam and plan: Yes
--- NOTE | 2016-08-07 17:47 | CP.PCM.CON ---
History of Present Illness - History of Present Illness History of Present Illness: patient is a 51 year old female with PMH HTN, PAD s/ previous endovascular intervention, HTN, DM who presents with foot wound. The patient failed outpatient antiobiotc therapy and therefore presented to [facility]. She is s/p debridement and bone biopsy. The patient denies foot pain. Review of Systems - Constitutional Constitutional: absent: As Per HPI, Anorexia, Chills, Daytime Sleepiness, Excessive Sweating, Fatigue, Fever, Frequent Falls, Headache, Increased Appetite , Lethargy, Malaise, Night Sweats, Snoring, Sleep Apnea, Weight Gain, Weight Loss, Weakness, Other - EENT Eyes: absent: As Per HPI, Blind Spots, Blurred Vision, Change in Vision, Decreased Night Vision, Diplopia, Discharge, Dry Eye, Exophthalmos, Floaters, Irritation, Itchy Eyes, Loss of Peripheral Vision, Pain, Photophobia, Requires Corrective Lenses, Sees Flashes, Spots in Vision, Tunnel Vision, Other Visual Disturbances, Loss of Vision, Other Ears: absent: As Per HPI, Decreased Hearing, Ear Discharge, Ear Pain, Tinnitus, Abnormal Hearing, Disequilibrium, Dizziness, Other Nose/Mouth/Throat: absent: As Per HPI, Epistaxis, Nasal Congestion, Nasal Discharge, Nasal Obstruction, Nasal Trauma, Nose Pain, Post Nasal Drip, Sinus Pain, Sinus Pressure, Bleeding Gums, Change in Voice, Dental Pain, Dry Mouth, Dysphagia, Halitosis, Hoarsness, Lip Swelling, Mouth Lesions, Mouth Pain, Odynophagia, Sore Throat, Throat Swelling, Tongue Swelling, Facial Pain, Neck Pain, Neck Mass, Other - Cardiovascular Cardiovascular: absent: As Per HPI, Acrocyanosis, Chest Pain, Chest Pain at Rest , Chest Pain with Activity, Claudication, Diaphoresis, Dyspnea, Dyspnea on Exertion, Edema, Irregular Heart Rhythm, Pain Radiating to Arm/Neck/Jaw, Leg Edema, Leg Ulcers, Lightheadedness, Orthopnea, Palpitations, Paroxysmal Nocturnal Dyspnea, Pedal Edema, Radiating Pain, Rapid Heart Rate, Slow Heart Rate, Syncope, Other - Respiratory Respiratory: absent: As Per HPI, Cough, Dyspnea, Hemoptysis, Dyspnea on Exertion , Wheezing, Snoring, Stridor, Pain on Inspiration, Chest Congestion, Excessive Mucous Production, Change in Mucous Color, Pain with Coughing, Other - Gastrointestinal Gastrointestinal: absent: As Per HPI, Abdominal Pain, Belching, Bloating, Change in Bowel Habits, Change in Stool Character, Coffee Ground Emesis, Constipation, Cramping, Diarrhea, Dyspepsia, Dysphagia, Early Satiety, Excessive Flatus, Fecal Incontinence, Heartburn, Hematemesis, Hematochezia, Loose Stools, Melena, Nausea, Odynophagia, Temesmus, Vomiting, Other - Genitourinary Genitourinary: absent: As Per HPI, Change in Urinary Stream, Difficulty Urinating, Dysuria, Flank Pain, Hematuria, Pyuria, Nocturia, Urinary Incontinence, Urinary Frequency, Urinary Hesitance, Urinary Urgency, Voiding Freq/Small Amts, Freq UTI, Hx Renal/Bladder Calculi, Hx /Renal Surgery, Bladder Distension, Other - Musculoskeletal Musculoskeletal: Radiating Pain into Limb - Integumentary Integumentary: absent: As Per HPI, Acne, Alopecia, Bleeding Lesions, Change in Hair, Change in Nails, Change in Pigmentation, Changing Lesions, Dry Skin, Erythema, Furuncle, Hirsutism, Lesions, New Lesions, Non-Healing Lesions, Photosensitivity, Pruritus, Rash, Skin Pain, Skin Ulcer, Sores, Striae, Swelling , Unusual Bruising, Wounds, Jaundice, Other - Neurological Neurological: absent: As Per HPI, Abnormal Gait, Abnormal Hearing, Abnormal Movements, Abnormal Speech, Behavioral Changes, Burning Sensations, Confusion, Convulsions, Disequilibrium, Dizziness, Numbness, Focal Weakness, Frequent Falls , Headaches, Lack of Coordination, Loss of Vision, Memory Loss, Paresthesias, Radicular Pain, Restless Legs, Sensory Deficit, Syncope, Tingling, Tremor, Vertigo, Weakness, Other Visual Disturbances, Other - Psychiatric Psychiatric: absent: As Per HPI, Abnormal Sleep Pattern, Anhedonia, Anxiety, Auditory Hallucinations, Behavioral Changes, Change in Appetite, Change in Libido, Confusion, Depression, Difficulty Concentrating, Hallucinations, Homicidal Ideation, Hopelessness, Irritability, Memory Loss, Mood Swings, Panic Attacks, Paranoia, Suicidal Ideation, Visual Hallucinations, Tactile Hallucinations, Other - Endocrine Endocrine: absent: As Per HPI, Change in Body Appearance, Change in Libido, Cold Intolorance, Deepening of Voice, Excessive Sweating, Fatigue, Flushing, Heat Intolorance, Increase in Ring/Shoe/Hat Size, Palpitations, Polydipsia, Polyphagia, Polyuria, Other - Hematologic/Lymphatic Hematologic: absent: As Per HPI, Easy Bleeding, Easy Bruising, Lymphadenopathy, Other Past Patient History - Past Medical History & Family History Past Medical History?: Yes - Past Social History Smoking Status: Former Smoker - CARDIAC Hx Hypercholesterolemia: Yes Hx Hypertension: Yes - PULMONARY Hx Respiratory Disorders: No - NEUROLOGICAL Hx Neurological Disorder: No - HEENT Hx HEENT Problems: No - RENAL Hx Chronic Kidney Disease: No - ENDOCRINE/METABOLIC Hx Diabetes Mellitus Type 2: Yes - HEMATOLOGICAL/ONCOLOGICAL Hx Anemia: Yes (Iron deficiency anemia) - INTEGUMENTARY Hx Dermatological Problems: No - MUSCULOSKELETAL/RHEUMATOLOGICAL Hx Musculoskeletal Disorders: No Hx Falls: No - GASTROINTESTINAL Hx Gastrointestinal Disorders: Yes Hx Ulcer: Yes - GENITOURINARY/GYNECOLOGICAL Hx Genitourinary Disorders: Yes Hx Reproductive Disorders: Yes (MENORRHAGIA) - PSYCHIATRIC Hx Substance Use: No - SURGICAL HISTORY Hx Surgeries: Yes Hx Section: Yes (X1) Hx Femoral-Popliteal Bypass Graft: Yes Hx Gastric Bypass Surgery: Yes Hx Hysterectomy: Yes - ANESTHESIA Hx Anesthesia: Yes Hx Anesthesia Reactions: No Hx Malignant Hyperthermia: No Meds Allergies/Adverse Reactions: Allergies Allergy/AdvReac Type Severity Reaction Status Date / Time shellfish derived Allergy Intermediate RASH Verified 08/05/16 09:13 - Medications Medications: Current Medications Glipizide (Glucotrol) 10 mg PO BIDAC [facility] Last Admin: 08/05/16 20:51 Dose: 10 mg Heparin Sodium (Porcine) (Heparin) 5,000 units SC Q12 [facility] Last Admin: 08/07/16 10:46 Dose: 5,000 units Hydralazine HCl (Apresoline) 10 mg PO BID [facility] Last Admin: 08/07/16 10:47 Dose: 10 mg Hydralazine HCl (Apresoline) 2.5 mg IVP Q15MIN PRN PRN Reason: Systolic Blood Pressure Last Admin: 08/06/16 10:52 Dose: 2.5 mg Hydrochlorothiazide (Hydrodiuril) 25 mg PO DAILY [facility] Last Admin: 08/07/16 10:46 Dose: 25 mg Piperacillin Sod/Tazobactam (Sod 3.375 gm/ Sodium Chloride) 100 mls @ 200 mls/ hr IVPB Q6 [facility] Last Admin: 08/07/16 11:49 Dose: 200 mls/hr Vancomycin HCl 1 gm/ Sodium (Chloride) 250 mls @ 166.7 mls/hr IVPB Q12 [facility] Last Admin: 08/06/16 21:12 Dose: 166.7 mls/hr Insulin Aspart (Novolog) 0 unit SC ACHS [facility] PRN Reason: Protocol Last Admin: 08/07/16 17:00 Dose: 1 unit Oxycodone/Acetaminophen (Percocet 5/325 Mg Tab) 2 tab PO Q4H PRN PRN Reason: Pain, moderate (4-7) Stop: 08/09/16 09:07 Last Admin: 08/07/16 02:00 Dose: 2 tab Saccharomyces Boulardii (Florastor) 250 mg PO BID [facility] Last Admin: 08/07/16 10:46 Dose: 250 mg Physical Exam - Constitutional Appears: Non-toxic - Head Exam Head Exam: NORMAL INSPECTION - Eye Exam Eye Exam: Normal appearance - ENT Exam ENT Exam: Mucous Membranes Moist - Neck Exam Neck exam: Positive for: Full Rom - Respiratory Exam Respiratory Exam: NORMAL BREATHING PATTERN - Cardiovascular Exam Cardiovascular Exam: REGULAR RHYTHM - GI/Abdominal Exam GI & Abdominal Exam: Normal Bowel Sounds - Rectal Exam Rectal Exam: Deferred - Extremities Exam Extremities exam: Positive for: pedal edema - Back Exam Back exam: NORMAL INSPECTION - Neurological Exam Neurological exam: Alert, Oriented x3 - Psychiatric Exam Psychiatric exam: Normal Affect - Skin Skin Exam: Normal Color Results - Vital Signs Recent Vital Signs: Last Vital Signs Temp 98 F 08/07/16 08:39 Pulse 63 08/07/16 08:39 Resp 20 08/07/16 08:39 BP 159/78 H 08/07/16 08:39 Pulse Ox 100 08/07/16 08:39 - Labs Result Diagrams: 08/07/16 08:04 08/07/16 08:04 Labs: Laboratory Results - last 24 hr 08/06/16 08/07/16 08/07/16 21:30 07:18 08:04 WBC 6.1 RBC 3.45 L Hgb 9.2 L Hct 28.4 L MCV 82.4 MCH 26.8 L MCHC 32.5 L RDW 13.4 Plt Count 168 MPV 10.4 Neut % (Auto) 53.1 Lymph % (Auto) 34.9 Williamson % (Auto) 7.8 Eos % (Auto) 3.0 Baso % (Auto) 1.2 Neut # 3.2 Lymph # 2.1 Williamson # 0.5 Eos # 0.2 Baso # 0.1 Sodium Potassium Chloride Carbon Dioxide Anion Gap BUN Creatinine Est GFR ( Amer) Est GFR (Non-Af Amer) POC Glucose (mg/dL) 105 94 Random Glucose Calcium Phosphorus Magnesium Total Bilirubin AST ALT Alkaline Phosphatase Total Protein Albumin Globulin Albumin/Globulin Ratio Random Vancomycin 08/07/16 08/07/16 08/07/16 08:04 08:04 11:09 WBC RBC Hgb Hct MCV MCH MCHC RDW Plt Count MPV Neut % (Auto) Lymph % (Auto) Williamson % (Auto) Eos % (Auto) Baso % (Auto) Neut # Lymph # Williamson # Eos # Baso # Sodium 137 Potassium 4.4 Chloride 104 Carbon Dioxide 25 Anion Gap 12 BUN 25 H Creatinine 1.3 H Est GFR ( Amer) 52 Est GFR (Non-Af Amer) 43 POC Glucose (mg/dL) 123 H Random Glucose 84 Calcium 8.4 L Phosphorus 5.2 H Magnesium 1.6 Total Bilirubin 0.5 AST 32 ALT 39 Alkaline Phosphatase 89 Total Protein 6.2 L Albumin 3.1 L Globulin 3.1 Albumin/Globulin Ratio 1.0 Random Vancomycin 16.08 08/07/16 16:25 WBC RBC Hgb Hct MCV MCH MCHC RDW Plt Count MPV Neut % (Auto) Lymph % (Auto) Williamson % (Auto) Eos % (Auto) Baso % (Auto) Neut # Lymph # Williamson # Eos # Baso # Sodium Potassium Chloride Carbon Dioxide Anion Gap BUN Creatinine Est GFR ( Amer) Est GFR (Non-Af Amer) POC Glucose (mg/dL) 157 H Random Glucose Calcium Phosphorus Magnesium Total Bilirubin AST ALT Alkaline Phosphatase Total Protein Albumin Globulin Albumin/Globulin Ratio Random Vancomycin - EKG Data EKG Interpreted by: Myself Assessment & Plan (1) Foot ulcer Assessment and Plan: s/p debridement. foot is well perfused. no clear osteomyelitis. Status: Acute (2) Leukocytosis Assessment and Plan: due to infection. continue antibiotics Status: Acute (3) HTN (hypertension) Assessment and Plan: blood pressure control Status: Acute (4) Non-insulin dependent type 2 diabetes mellitus Assessment and Plan: risk factors for development of progressive PAD. continue meds Status: Acute
[2016-08-08] MEDS: Piperacillin/Tazobact 3.375 GM in Sodium Chloride 100 ML IVPB SCH ×4 (00:06→17:45)
[2016-08-08] MEDS: (Novolog) Insulin Aspart, Recombinant 100 u/ml 10 ml vial SC SCH ×4 (08:24→21:54)
[2016-08-08] MEDS: Saccharomyces Boulardi 250 mg Cap PO SCH ×2 (10:24→17:53)
--- NOTE | 2016-08-08 12:27 | CP.PCM.PN ---
Subjective - Date & Time of Evaluation Date of Evaluation: 08/08/16 Time of Evaluation: 12:24 - Subjective Subjective: Patient seen and evaluated this morning, NAD. Patient participating in physical therapy and ambulating with walker. Patient states that she is feeling well, denies n/v/f/c/sob. Posterior splint is clean dry and intact. Objective - Vital Signs/Intake and Output Vital Signs (last 24 hours): Temp Pulse Resp BP Pulse Ox 98.2 F 60 20 157/74 H 98 08/08/16 08:38 08/08/16 08:38 08/08/16 08:38 08/08/16 08:38 08/08/16 08:38 Intake and Output: 08/08/16 08/08/16 06:59 18:59 Intake Total 320 Balance 320 - Medications Medications: Current Medications Acetaminophen (Tylenol 325mg Tab) 650 mg PO Q6 PRN PRN Reason: Pain, Mild (1-3) Last Admin: 08/08/16 01:18 Dose: 650 mg Glipizide (Glucotrol) 10 mg PO BIDAC [facility] Last Admin: 08/05/16 20:51 Dose: 10 mg Heparin Sodium (Porcine) (Heparin) 5,000 units SC Q12 [facility] Last Admin: 08/08/16 10:24 Dose: 5,000 units Hydralazine HCl (Apresoline) 10 mg PO BID [facility] Last Admin: 08/08/16 10:24 Dose: 10 mg Hydralazine HCl (Apresoline) 2.5 mg IVP Q15MIN PRN PRN Reason: Systolic Blood Pressure Last Admin: 08/06/16 10:52 Dose: 2.5 mg Hydrochlorothiazide (Hydrodiuril) 25 mg PO DAILY [facility] Last Admin: 08/08/16 10:24 Dose: 25 mg Piperacillin Sod/Tazobactam (Sod 3.375 gm/ Sodium Chloride) 100 mls @ 200 mls/ hr IVPB Q6 [facility] Last Admin: 08/08/16 06:08 Dose: 200 mls/hr Vancomycin HCl 1 gm/ Sodium (Chloride) 250 mls @ 166.7 mls/hr IVPB Q12 [facility] Last Admin: 08/06/16 21:12 Dose: 166.7 mls/hr Insulin Aspart (Novolog) 0 unit SC ACHS [facility] PRN Reason: Protocol Last Admin: 08/08/16 08:24 Dose: Not Given Oxycodone/Acetaminophen (Percocet 5/325 Mg Tab) 2 tab PO Q4H PRN PRN Reason: Pain, moderate (4-7) Stop: 08/09/16 09:07 Last Admin: 08/07/16 02:00 Dose: 2 tab Saccharomyces Boulardii (Florastor) 250 mg PO BID [facility] Last Admin: 08/08/16 10:24 Dose: 250 mg - Labs Labs: 08/07/16 08:04 08/07/16 08:04 PT 11.1 SECONDS (9.7-12.2) 08/06/16 07:10 INR 1.0 08/06/16 07:10 APTT 28 SECONDS (21-34) 08/06/16 07:10 - Constitutional Appears: Well, Non-toxic, No Acute Distress - Neurological Exam Neurological Exam: Oriented x3 - Psychiatric Exam Psychiatric exam: Normal Mood - Additional Findings Additional findings: Posterior splint c/d/i, nv status intact distal to the splint. Assessment and Plan - Assessment and Plan (Free Text) Assessment: 51 year old female POD#2 for right foot bone debridement Plan: Patient seen and evaluated, d/w attending Dr. White Patients posterior splint left intact at this time, will change tomorrow Patient to remain NWB to the RLE at this time Continue PT Bone biopsy negative, abx recs per ID Podiatry will continue to follow while in house
[2016-08-08 14:30] LABS: BASO # 0.1 K/uL (0.0-0.2); BASO % 1.4 % (0.0-2.0); EOS # 0.3 K/uL (0.0-0.7); EOS % 5.4 % (0.0-4.0); HEMATOCRIT 32.9 % (34.0-47.0); LYMPH # 1.4 K/uL (1.0-4.3); LYMPH % 27.5 % (20.0-40.0); MEAN CELL VOLUME 82.4 fL (81.0-99.0); MEAN CORPUSCULAR HEMOGLOBIN 26.6 pg (27.0-31.0); MEAN CORPUSCULAR HGB CONC 32.3 g/dL (33.0-37.0); MEAN PLATELET VOLUME 10.6 fL (7.2-11.7); MONO # 0.3 K/uL (0.0-0.8); RED CELL DISTRIBUTION WIDTH 13.4 % (11.5-14.5)
[2016-08-08 14:42] LABS: POTASSIUM 4.9 mmol/L (3.6-5.2)
[2016-08-08 14:44] LABS: BILIRUBIN,TOTAL 0.5 mg/dL (0.2-1.3)
[2016-08-08 14:45] LABS: CALCIUM 8.6 mg/dl (8.6-10.4); PHOSPHOROUS 4.5 mg/dL (2.5-4.5); TOTAL PROTEIN 7.4 g/dL (6.3-8.3)
[2016-08-08 14:46] LABS: MAGNESIUM 1.6 mg/dL (1.6-2.3)
--- NOTE | 2016-08-08 15:40 | CP.PCM.PN ---
<Robbin Arceo - Last Filed: 08/08/16 15:42> Subjective - Date & Time of Evaluation Date of Evaluation: 08/08/16 Time of Evaluation: 15:35 - Subjective Subjective: Med progress note. Attending: Dr. aTylor Pt seen and examined at bedside. No acute distress. No events overnight. pt has no complaints. Bone biopsy shows negative osteo, but mri was suspicious for osteo. We will follow up with ID regarding tx. Objective - Vital Signs/Intake and Output Vital Signs (last 24 hours): Temp Pulse Resp BP Pulse Ox 98.2 F 60 20 157/74 H 98 08/08/16 08:38 08/08/16 08:38 08/08/16 08:38 08/08/16 08:38 08/08/16 08:38 Intake and Output: 08/08/16 08/08/16 06:59 18:59 Intake Total 320 300 Balance 320 300 - Medications Medications: Current Medications Acetaminophen (Tylenol 325mg Tab) 650 mg PO Q6 PRN PRN Reason: Pain, Mild (1-3) Last Admin: 08/08/16 01:18 Dose: 650 mg Glipizide (Glucotrol) 10 mg PO BIDAC [facility] Last Admin: 08/05/16 20:51 Dose: 10 mg Heparin Sodium (Porcine) (Heparin) 5,000 units SC Q12 [facility] Last Admin: 08/08/16 10:24 Dose: 5,000 units Hydralazine HCl (Apresoline) 10 mg PO BID [facility] Last Admin: 08/08/16 10:24 Dose: 10 mg Hydralazine HCl (Apresoline) 2.5 mg IVP Q15MIN PRN PRN Reason: Systolic Blood Pressure Last Admin: 08/06/16 10:52 Dose: 2.5 mg Hydrochlorothiazide (Hydrodiuril) 25 mg PO DAILY [facility] Last Admin: 08/08/16 10:24 Dose: 25 mg Piperacillin Sod/Tazobactam (Sod 3.375 gm/ Sodium Chloride) 100 mls @ 200 mls/ hr IVPB Q6 [facility] Last Admin: 08/08/16 12:32 Dose: 200 mls/hr Vancomycin HCl 1 gm/ Sodium (Chloride) 250 mls @ 166.7 mls/hr IVPB Q12 [facility] Last Admin: 08/06/16 21:12 Dose: 166.7 mls/hr Insulin Aspart (Novolog) 0 unit SC ACHS [facility] PRN Reason: Protocol Last Admin: 08/08/16 11:33 Dose: 1 unit Oxycodone/Acetaminophen (Percocet 5/325 Mg Tab) 2 tab PO Q4H PRN PRN Reason: Pain, moderate (4-7) Stop: 08/09/16 09:07 Last Admin: 08/07/16 02:00 Dose: 2 tab Saccharomyces Boulardii (Florastor) 250 mg PO BID [facility] Last Admin: 08/08/16 10:24 Dose: 250 mg - Labs Labs: 08/08/16 14:13 08/08/16 14:13 PT 11.1 SECONDS (9.7-12.2) 08/06/16 07:10 INR 1.0 08/06/16 07:10 APTT 28 SECONDS (21-34) 08/06/16 07:10 - Constitutional Appears: Non-toxic, No Acute Distress - Head Exam Head Exam: ATRAUMATIC, NORMAL INSPECTION, NORMOCEPHALIC - Eye Exam Eye Exam: EOMI - ENT Exam ENT Exam: Mucous Membranes Moist - Neck Exam Neck Exam: Full ROM, Normal Inspection. absent: Lymphadenopathy - Respiratory Exam Respiratory Exam: NORMAL BREATHING PATTERN. absent: Respiratory Distress - Cardiovascular Exam Cardiovascular Exam: +S1, +S2 - GI/Abdominal Exam GI & Abdominal Exam: Soft, Normal Bowel Sounds. absent: Tenderness - Extremities Exam Extremities Exam: absent: Full ROM, Normal Inspection Additional comments: Cast in place, sensation intact - Neurological Exam Neurological Exam: Alert, Awake, Oriented x3 - Psychiatric Exam Psychiatric exam: Normal Affect, Normal Mood - Skin Skin Exam: Dry, Intact, Normal Color, Warm Assessment and Plan - Assessment and Plan (Free Text) Assessment: This is a 51 year old female with past medical hx of PAD, DM, iron deficiency anemia, HTN, hyperlipidemia presenting with infected diabetic foot ulcer, suspicious for osteomyelitis 1. Diabetic R plantar foot ulcer -Patient admitted to med/surg -rule out osteomyelitis -MRI shows prominent reactive bone marrow edema suspicious for osteo -X ray shows prominent soft tissue swelling lateral midfoot, patchy increased sclerosis 5th metatarsal shaft which may represent acute osteomyelitis, deformity with bony ankylosis and sclerosis at level of 2nd metatarsal bases and corresponding tarsal bones, near complete ankylosis of visualized midfoot, productive change with cortical sclerosis at volar midfoot, diffuse osteopenia - Vancomycin on hold for GFR - Zosyn 3.375 IVPB Q6H day 4 - f/u blood culture: blood cultures negative -wound culture shows gram negative steven/gram positive cocci - Dr. White podiatry following- patient is s/p debridement 08/06/16 - ID Dr. Fabian consulted- f/u recs. we will follow up regarding length of tx. -plan for picc possibly -bone biopsy negative for osteo 2. Hx of PAD -Plavix 75mg po on hold 3. Hx of Hypertension -Hydralazine 10 BID [facility] - HCTZ 25mg PO daily -hydralazine 2.5 q 15 prn 4. Hx of DM2 -ISS 5. Hx of HLD -f/u lipid panel 6. Hx of Iron Deficiency Anemia -continue to monitor 7. GI/DVT PPX -heparin 5000 q 12 -regular diet discussed with Dr. Taylor <Glenys Taylor V - Last Filed: 11/07/16 00:43> Objective - Vital Signs/Intake and Output Vital Signs (last 24 hours): Temp Pulse Resp BP Pulse Ox 98.1 F 59 L 20 181/73 H 98 08/09/16 15:00 08/09/16 15:00 08/09/16 15:00 08/09/16 15:00 08/09/16 15:00 - Labs Labs: 08/09/16 07:07 08/09/16 07:07 PT 11.1 SECONDS (9.7-12.2) 08/06/16 07:10 INR 1.0 08/06/16 07:10 APTT 28 SECONDS (21-34) 08/06/16 07:10 Attending/Attestation - Attestation I have personally seen and examined this patient.: Yes I have fully participated in the care of the patient.: Yes I have reviewed all pertinent clinical information, including history, physical exam and plan: Yes
[2016-08-08 23:23] VITALS: O2SAT 98
[2016-08-09] MEDS: Piperacillin/Tazobact 3.375 GM in Sodium Chloride 100 ML IVPB SCH ×4 (00:30→17:12)
[2016-08-09] MEDS: (Novolog) Insulin Aspart, Recombinant 100 u/ml 10 ml vial SC SCH ×3 (07:16→16:30)
[2016-08-09 07:33] LABS: BASO # 0.1 K/uL (0.0-0.2); BASO % 1.4 % (0.0-2.0); EOS # 0.3 K/uL (0.0-0.7); EOS % 5.2 % (0.0-4.0); LYMPH # 2.1 K/uL (1.0-4.3); LYMPH % 43.2 % (20.0-40.0); MEAN CELL VOLUME 81.7 fL (81.0-99.0); MEAN CORPUSCULAR HEMOGLOBIN 26.7 pg (27.0-31.0); MEAN CORPUSCULAR HGB CONC 32.7 g/dL (33.0-37.0); MEAN PLATELET VOLUME 10.6 fL (7.2-11.7); MONO # 0.3 K/uL (0.0-0.8); MONO % 5.8 % (0.0-10.0); RED CELL DISTRIBUTION WIDTH 13.4 % (11.5-14.5); WHITE BLOOD COUNT 4.9 K/uL (4.8-10.8)
[2016-08-09 08:03] LABS: POTASSIUM 4.3 mmol/L (3.6-5.2)
[2016-08-09 08:05] LABS: BILIRUBIN,TOTAL 0.4 mg/dL (0.2-1.3); TOTAL PROTEIN 7.2 g/dL (6.3-8.3)
--- NOTE | 2016-08-09 08:43 | CP.PCM.PN ---
Subjective - Date & Time of Evaluation Date of Evaluation: 08/09/16 Time of Evaluation: 08:42 - Subjective Subjective: Patient seen and evaluated at bedside, NAD. Patient is resting comfortably, denies pain to the RLE. Patient has posterior splint and bandages clean dry and intact. Objective - Vital Signs/Intake and Output Vital Signs (last 24 hours): Temp Pulse Resp BP Pulse Ox 97.5 F L 60 20 154/72 H 98 08/09/16 08:26 08/09/16 08:26 08/09/16 08:26 08/09/16 08:26 08/09/16 08:26 Intake and Output: 08/09/16 08/09/16 06:59 18:59 Intake Total 440 Balance 440 - Medications Medications: Current Medications Acetaminophen (Tylenol 325mg Tab) 650 mg PO Q6 PRN PRN Reason: Pain, Mild (1-3) Last Admin: 08/08/16 01:18 Dose: 650 mg Glipizide (Glucotrol) 10 mg PO BIDAC [facility] Last Admin: 08/05/16 20:51 Dose: 10 mg Heparin Sodium (Porcine) (Heparin) 5,000 units SC Q12 [facility] Last Admin: 08/08/16 21:51 Dose: 5,000 units Hydralazine HCl (Apresoline) 10 mg PO BID [facility] Last Admin: 08/08/16 17:45 Dose: 10 mg Hydralazine HCl (Apresoline) 2.5 mg IVP Q15MIN PRN PRN Reason: Systolic Blood Pressure Last Admin: 08/06/16 10:52 Dose: 2.5 mg Hydrochlorothiazide (Hydrodiuril) 25 mg PO DAILY [facility] Last Admin: 08/08/16 10:24 Dose: 25 mg Piperacillin Sod/Tazobactam (Sod 3.375 gm/ Sodium Chloride) 100 mls @ 200 mls/ hr IVPB Q6 [facility] Last Admin: 08/09/16 06:34 Dose: 200 mls/hr Vancomycin HCl 1 gm/ Sodium (Chloride) 250 mls @ 166.7 mls/hr IVPB Q12 [facility] Last Admin: 08/06/16 21:12 Dose: 166.7 mls/hr Insulin Aspart (Novolog) 0 unit SC ACHS [facility] PRN Reason: Protocol Last Admin: 08/09/16 07:16 Dose: Not Given Oxycodone/Acetaminophen (Percocet 5/325 Mg Tab) 2 tab PO Q4H PRN PRN Reason: Pain, moderate (4-7) Stop: 08/09/16 09:07 Last Admin: 08/07/16 02:00 Dose: 2 tab Saccharomyces Boulardii (Florastor) 250 mg PO BID [facility] Last Admin: 08/08/16 17:53 Dose: 250 mg - Labs Labs: 08/09/16 07:07 08/09/16 07:07 PT 11.1 SECONDS (9.7-12.2) 08/06/16 07:10 INR 1.0 08/06/16 07:10 APTT 28 SECONDS (21-34) 08/06/16 07:10 - Constitutional Appears: Well, Non-toxic, No Acute Distress - Neurological Exam Neurological Exam: Oriented x3 - Psychiatric Exam Psychiatric exam: Normal Affect, Normal Mood - Additional Findings Additional findings: DERMATOLOGIC: Right foot surgical site with mild sanguinous drainage, wound edges intact, no erythema, no purulence, no streaking. Surrounding skin is intact. VASCULAR: DP/PT pulses are 1/4, FUNERAL DIRECTOR<3 seconds, skin temperature is normal. Mild edema of the surgical site. NEUROLOGIC: Protective sensation absent ORTHOPEDIC: Negative pain on palpation to the surgical site. There is decreased bony prominence at the wound site. 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 White Patients right foot dressing changed with xeroform, DSD, posterior splint reapplied Patient to continue NWB to the RLE Bone biopsy negative, abx recs per ID Patient stable to DC per podiatry once ABX recs are obtained Podiatry will continue to follow while in house, pt will f/u with Dr. White in his office after DC
--- NOTE | 2016-08-09 09:00 | CP.PCM.PN ---
Subjective - Date & Time of Evaluation Date of Evaluation: 08/09/16 Time of Evaluation: 08:42 - Subjective Subjective: Bandages and splint intact right foot. Objective - Vital Signs/Intake and Output Vital Signs (last 24 hours): Temp Pulse Resp BP Pulse Ox 97.5 F L 60 20 154/72 H 98 08/09/16 08:26 08/09/16 08:26 08/09/16 08:26 08/09/16 08:26 08/09/16 08:26 Intake and Output: 08/09/16 08/09/16 06:59 18:59 Intake Total 440 Balance 440 - Medications Medications: Current Medications Acetaminophen (Tylenol 325mg Tab) 650 mg PO Q6 PRN PRN Reason: Pain, Mild (1-3) Last Admin: 08/08/16 01:18 Dose: 650 mg Glipizide (Glucotrol) 10 mg PO BIDAC [facility] Last Admin: 08/05/16 20:51 Dose: 10 mg Heparin Sodium (Porcine) (Heparin) 5,000 units SC Q12 [facility] Last Admin: 08/08/16 21:51 Dose: 5,000 units Hydralazine HCl (Apresoline) 10 mg PO BID [facility] Last Admin: 08/08/16 17:45 Dose: 10 mg Hydralazine HCl (Apresoline) 2.5 mg IVP Q15MIN PRN PRN Reason: Systolic Blood Pressure Last Admin: 08/06/16 10:52 Dose: 2.5 mg Hydrochlorothiazide (Hydrodiuril) 25 mg PO DAILY [facility] Last Admin: 08/08/16 10:24 Dose: 25 mg Piperacillin Sod/Tazobactam (Sod 3.375 gm/ Sodium Chloride) 100 mls @ 200 mls/ hr IVPB Q6 [facility] Last Admin: 08/09/16 06:34 Dose: 200 mls/hr Vancomycin HCl 1 gm/ Sodium (Chloride) 250 mls @ 166.7 mls/hr IVPB Q12 [facility] Last Admin: 08/06/16 21:12 Dose: 166.7 mls/hr Insulin Aspart (Novolog) 0 unit SC ACHS [facility] PRN Reason: Protocol Last Admin: 08/09/16 07:16 Dose: Not Given Oxycodone/Acetaminophen (Percocet 5/325 Mg Tab) 2 tab PO Q4H PRN PRN Reason: Pain, moderate (4-7) Stop: 08/09/16 09:07 Last Admin: 08/07/16 02:00 Dose: 2 tab Saccharomyces Boulardii (Florastor) 250 mg PO BID [facility] Last Admin: 08/08/16 17:53 Dose: 250 mg - Labs Labs: 08/09/16 07:07 08/09/16 07:07 PT 11.1 SECONDS (9.7-12.2) 08/06/16 07:10 INR 1.0 08/06/16 07:10 APTT 28 SECONDS (21-34) 08/06/16 07:10
[2016-08-09] MEDS: Saccharomyces Boulardi 250 mg Cap PO SCH ×2 (09:56→17:12)
--- NOTE | 2016-08-09 14:54 | CP.PCM.CON ---
History of Present Illness - History of Present Illness History of Present Illness: HPI: Patient is a 51 year old female PMHx of PAD, DM, iron deficiency anemia, HTN, hypercholesterolemia presenting with a R foot blister first noticed 6 weeks ago. Patient reports she was seen by Dr. White who gave her PO ciprofloxacin which did not help her infection. Patient was seen in [facility] at the beginning of the month where she had a questionable x-ray of the right foot done, which showed possible osteomyelitis. She has had a similar complain 4-5 years ago for which she was admitted and started on IV antibiotics and then discharged home with a PICC line for IV abx for osteomyelitis. Patient denies much pain at the site and reports that her regimen of Ibuprofen 600mg every 12 hours helps golden the pain. At home she has been applying betadine and the silversalazine and wrapping her foot with gauze. She was last seen by Dr. Jaeger for her PAD 1 month ago and had b/l ABIs. Patient reports some pain with ambulation as that places pressure on the site but otherwise denies any fever, chills, numbness/tingling of her extremities, chest pain, palpitations, shortness of breath, cough, abdominal pain, bowel/ bladder complaints, swelling of her extremities, recent travel/sick contacts. PMD: Dr. King Cardiovascular: Dr. Jaeger Podiatry: Dr. White PMHx: PAD, DM, iron deficiency anemia, HTN, hypercholesterolemia Meds: Plavix, Glipizide, Hydralazine, HCTZ ALL: shellfish PSurg: LE stents by Dr. Jaeger 4-5 years ago, Bariatric surgery [address] Flores, 14 years ago, Hysterectomy by Dr. Kumar 2014 PHospitalizations: 2015 for GI bleed and vaginal bleed FamHx: father with prostate ca and had [place] at age 64; mother of multiple myeloma 14 years ago; both parents had DM and HTN; no hx of CVA SocHx: patient used to smoke 3-4 cigarettes/day for 20 years and quit 14 years ago; drinks EtOH sociallyl denies drug use; lives at home with and three children; works at [employer] ROS: Admits to mild headaches at times and nausea; denies fever, chills, numbness/tingling of her extremities, chest pain, palpitations, shortness of breath, cough, abdominal pain, bowel/bladder complaints, swelling of her extremities CONSULT DICTATED KNOWN TO ME FOR STABLE CKD STAGE 3 FOR PICC NOW THEN OUTPATIENT IV ABs WILL FOLLOW UP HTN, RENAL FUNCTION OUTPATIENT Past Patient History - Past Medical History & Family History Past Medical History?: Yes - Past Social History Smoking Status: Former Smoker - CARDIAC Hx Hypercholesterolemia: Yes Hx Hypertension: Yes - PULMONARY Hx Respiratory Disorders: No - NEUROLOGICAL Hx Neurological Disorder: No - HEENT Hx HEENT Problems: No - RENAL Hx Chronic Kidney Disease: No - ENDOCRINE/METABOLIC Hx Diabetes Mellitus Type 2: Yes - HEMATOLOGICAL/ONCOLOGICAL Hx Anemia: Yes (Iron deficiency anemia) - INTEGUMENTARY Hx Dermatological Problems: No - MUSCULOSKELETAL/RHEUMATOLOGICAL Hx Musculoskeletal Disorders: No Hx Falls: No - GASTROINTESTINAL Hx Gastrointestinal Disorders: Yes Hx Ulcer: Yes - GENITOURINARY/GYNECOLOGICAL Hx Genitourinary Disorders: Yes Hx Reproductive Disorders: Yes (MENORRHAGIA) - PSYCHIATRIC Hx Substance Use: No - SURGICAL HISTORY Hx Surgeries: Yes Hx Section: Yes (X1) Hx Femoral-Popliteal Bypass Graft: Yes Hx Gastric Bypass Surgery: Yes Hx Hysterectomy: Yes - ANESTHESIA Hx Anesthesia: Yes Hx Anesthesia Reactions: No Hx Malignant Hyperthermia: No Meds Allergies/Adverse Reactions: Allergies Allergy/AdvReac Type Severity Reaction Status Date / Time shellfish derived Allergy Intermediate RASH Verified 08/05/16 09:13 - Medications Medications: Current Medications Acetaminophen (Tylenol 325mg Tab) 650 mg PO Q6 PRN PRN Reason: Pain, Mild (1-3) Last Admin: 08/08/16 01:18 Dose: 650 mg Glipizide (Glucotrol) 10 mg PO BIDAC [facility] Last Admin: 08/05/16 20:51 Dose: 10 mg Hydralazine HCl (Apresoline) 10 mg PO BID [facility] Last Admin: 08/09/16 09:57 Dose: 10 mg Hydralazine HCl (Apresoline) 2.5 mg IVP Q15MIN PRN PRN Reason: Systolic Blood Pressure Last Admin: 08/06/16 10:52 Dose: 2.5 mg Hydrochlorothiazide (Hydrodiuril) 25 mg PO DAILY [facility] Last Admin: 08/09/16 09:56 Dose: 25 mg Piperacillin Sod/Tazobactam (Sod 3.375 gm/ Sodium Chloride) 100 mls @ 200 mls/ hr IVPB Q6 [facility] Last Admin: 08/09/16 12:15 Dose: 200 mls/hr Vancomycin HCl 1 gm/ Sodium (Chloride) 250 mls @ 166.7 mls/hr IVPB Q12 [facility] Last Admin: 08/06/16 21:12 Dose: 166.7 mls/hr Insulin Aspart (Novolog) 0 unit SC ACHS [facility] PRN Reason: Protocol Last Admin: 08/09/16 12:09 Dose: 2 unit Saccharomyces Boulardii (Florastor) 250 mg PO BID [facility] Last Admin: 08/09/16 09:56 Dose: 250 mg Results - Vital Signs Recent Vital Signs: Last Vital Signs Temp 97.5 F L 08/09/16 08:26 Pulse 60 08/09/16 08:26 Resp 20 08/09/16 08:26 BP 154/72 H 08/09/16 08:26 Pulse Ox 98 08/09/16 08:26 - Labs Result Diagrams: 08/09/16 07:07 08/09/16 07:07 Labs: Laboratory Results - last 24 hr 08/08/16 08/08/16 08/08/16 14:13 15:59 21:32 WBC RBC Hgb Hct MCV MCH MCHC RDW Plt Count MPV Neut % (Auto) Lymph % (Auto) Long % (Auto) Eos % (Auto) Baso % (Auto) Neut # Lymph # Long # Eos # Baso # Sodium 136 Potassium 4.9 Chloride 103 Carbon Dioxide 25 Anion Gap 14 BUN 31 H Creatinine 1.2 Est GFR ( Amer) 58 Est GFR (Non-Af Amer) 48 POC Glucose (mg/dL) 123 H 146 H Random Glucose 127 H Calcium 8.6 Phosphorus 4.5 Magnesium 1.6 Total Bilirubin 0.5 AST 55 H D ALT 48 Alkaline Phosphatase 122 Total Protein 7.4 Albumin 3.8 Globulin 3.6 Albumin/Globulin Ratio 1.0 08/09/16 08/09/16 08/09/16 07:07 07:07 07:10 WBC 4.9 RBC 3.91 Hgb 10.5 L Hct 32.0 L MCV 81.7 MCH 26.7 L MCHC 32.7 L RDW 13.4 Plt Count 199 MPV 10.6 Neut % (Auto) 44.4 L Lymph % (Auto) 43.2 H Long % (Auto) 5.8 Eos % (Auto) 5.2 H Baso % (Auto) 1.4 Neut # 2.2 Lymph # 2.1 Long # 0.3 Eos # 0.3 Baso # 0.1 Sodium 140 Potassium 4.3 Chloride 104 Carbon Dioxide 25 Anion Gap 15 BUN 30 H Creatinine 1.3 H Est GFR ( Amer) 52 Est GFR (Non-Af Amer) 43 POC Glucose (mg/dL) 95 Random Glucose 87 Calcium 9.0 Phosphorus Magnesium Total Bilirubin 0.4 AST 41 H D ALT 44 Alkaline Phosphatase 109 Total Protein 7.2 Albumin 3.7 Globulin 3.6 Albumin/Globulin Ratio 1.0 08/09/16 11:33 WBC RBC Hgb Hct MCV MCH MCHC RDW Plt Count MPV Neut % (Auto) Lymph % (Auto) Long % (Auto) Eos % (Auto) Baso % (Auto) Neut # Lymph # Long # Eos # Baso # Sodium Potassium Chloride Carbon Dioxide Anion Gap BUN Creatinine Est GFR ( Amer) Est GFR (Non-Af Amer) POC Glucose (mg/dL) 214 H Random Glucose Calcium Phosphorus Magnesium Total Bilirubin AST ALT Alkaline Phosphatase Total Protein Albumin Globulin Albumin/Globulin Ratio
--- NOTE | 2016-08-09 15:24 | CON ---
DATE: 08/09/2016 HISTORY OF PRESENT ILLNESS: The patient is a 51-year-old woman who presents with right foot ulcer. She has a known past medical history of chronic kidney disease stage III, for which she is known to stanley mon. Other past medical history is peripheral arterial disease, diabetes mellitus type 2, hypertension , dyslipidemia. She had a previous surgery of lower extremity stents for preservation of peripheral arterial disease about 4 or 5 years ago. She had other surgery, bariatric surgery for obesity in the past. PAST SURGICAL HISTORY: Hysterectomy and . She was admitted to the hospital for increasing foot ulcer, which was worsening and a questionable x- ray of the right foot, which led to an MRI which suggested osteomyelitis. She had a biopsy that area of the ulcer and it confirmed osteomyelitis. Now she is being treated for osteomyelitis. She has b een taking ibuprofen at home for the pain and was told to stop this because of the chronic kidney dis ease. MEDICATIONS: Include hydralazine, hydrochlorothiazide, glipizide and now she is getting IV vancomyci n and Zosyn for osteomyelitis. She also has been on Plavix as an outpatient. SOCIAL HISTORY: She used to be a former smoker, but not in 20 years. No history of alcohol abuse or illicit drug use. FAMILY HISTORY: Negative for chronic kidney disease. Mother of multiple myeloma. REVIEW OF SYSTEMS: Significant for headaches. No fevers, chills or sweats. She has numbness of bot h her feet. No chest pain, no shortness of breath, no cough. She has had numbness and increasing pa in over the right foot. PHYSICAL EXAMINATION: GENERAL: She is a well-developed female in no acute distress. VITAL SIGNS: Blood pressure is 154/72, temperature 97.5, pulse 60, pulse ox 98% on room air. HEENT: Anicteric. Mouth was clear. NECK: No JVD. LUNGS: You were clear anteriorly. HEART: Regular rhythm, no murmur. ABDOMEN: Soft, benign. No mass or organomegaly. EXTREMITIES: No peripheral edema. The right foot was bandaged, but no obvious edema. NEUROLOGIC: No focal deficits. LABORATORY DATA: The wound culture showed VSE wound culture positive from biopsy of the bone. Other available lab work showed hemoglobin of 10.5, white count of 4.9. BUN of 30, creatinine 1.3, GFR of 43. IMPRESSION: The patient has osteomyelitis of the right foot, known peripheral arterial disease, diab etes mellitus type 2, chronic kidney disease stage III, chronic anemia. PLAN: PICC line placement, IV antibiotics. Renal function has been stable. She can be followed as an outpatient for chronic kidney disease and hypertension, which lately have not been problematic. W ill follow up. Henrry Tapia MD cc: [id number] TT: 08/09/2016 15:24:06 Confirmation # [id number] Dictation # [id number] jn
--- NOTE | 2016-08-09 16:00 | RAD ---
HISTORY: verify left PICC COMPARISON: Comparison is made to the previous study dated 08/05/2016 FINDINGS: LUNGS: No active pulmonary disease. PLEURA: No significant pleural effusion identified, no pneumothorax apparent. CARDIOVASCULAR: Normal. OSSEOUS STRUCTURES: No significant abnormalities. VISUALIZED UPPER ABDOMEN: Normal. OTHER FINDINGS: Left-sided PICC line is seen at appropriate position with the tip is likely at the SVC right atrium junction. IMPRESSION: No active disease. Appropriate position of the left-sided PICC line with the tip at the SVC right atrium junction.
--- NOTE | 2016-08-09 16:24 | CP.PCM.DIS ---
<Robbin Arceo - Last Filed: 08/09/16 16:28> Provider - Provider Date of Admission: 08/05/16 11:53 Attending physician: Glenys Taylor DO Consults: Consults: cardio- Mil ID- [facility]- Cindy Time Spent in preparation of Discharge (in minutes): 45 Hospital Course - Lab Results Lab Results: Micro Results 08/05/16 19:30 Blood Blood Culture - Preliminary NO GROWTH AFTER 3 DAYS 08/05/16 19:30 Blood Blood Culture - Preliminary NO GROWTH AFTER 3 DAYS 08/06/16 08:45 Bone Gram Stain - Final 08/06/16 08:45 Bone Tissue Culture - Final Stenotrophomonas Maltophilia Enterococcus Faecalis Most Recent Lab Values WBC 4.9 K/uL (4.8-10.8) 08/09/16 07:07 RBC 3.91 Mil/uL (3.80-5.20) 08/09/16 07:07 Hgb 10.5 g/dL (11.0-16.0) L 08/09/16 07:07 Hct 32.0 % (34.0-47.0) L 08/09/16 07:07 MCV 81.7 fL (81.0-99.0) 08/09/16 07:07 MCH 26.7 pg (27.0-31.0) L 08/09/16 07:07 MCHC 32.7 g/dL (33.0-37.0) L 08/09/16 07:07 RDW 13.4 % (11.5-14.5) 08/09/16 07:07 Plt Count 199 K/uL (130-400) 08/09/16 07:07 MPV 10.6 fL (7.2-11.7) 08/09/16 07:07 Neut % (Auto) 44.4 % (50.0-75.0) L 08/09/16 07:07 Lymph % (Auto) 43.2 % (20.0-40.0) H 08/09/16 07:07 [place] % (Auto) 5.8 % (0.0-10.0) 08/09/16 07:07 Eos % (Auto) 5.2 % (0.0-4.0) H 08/09/16 07:07 Baso % (Auto) 1.4 % (0.0-2.0) 08/09/16 07:07 Neut # 2.2 K/uL (1.8-7.0) 08/09/16 07:07 Lymph # 2.1 K/uL (1.0-4.3) 08/09/16 07:07 [place] # 0.3 K/uL (0.0-0.8) 08/09/16 07:07 Eos # 0.3 K/uL (0.0-0.7) 08/09/16 07:07 Baso # 0.1 K/uL (0.0-0.2) 08/09/16 07:07 Retic Count 0.8 % (0.5-1.5) D 08/06/16 07:10 PT 11.1 SECONDS (9.7-12.2) 08/06/16 07:10 INR 1.0 08/06/16 07:10 APTT 28 SECONDS (21-34) 08/06/16 07:10 Sodium 140 mmol/L (132-148) 08/09/16 07:07 Potassium 4.3 mmol/L (3.6-5.2) 08/09/16 07:07 Chloride 104 mmol/L (98-107) 08/09/16 07:07 Carbon Dioxide 25 mmol/L (22-30) 08/09/16 07:07 Anion Gap 15 (10-20) 08/09/16 07:07 BUN 30 mg/dL (7-17) H 08/09/16 07:07 Creatinine 1.3 MG/DL (0.7-1.2) H 08/09/16 07:07 Est GFR ( Amer) 52 08/09/16 07:07 Est GFR (Non-Af Amer) 43 08/09/16 07:07 POC Glucose (mg/dL) 214 mg/dL (65-110) H 08/09/16 11:33 Random Glucose 87 mg/dL (65-105) 08/09/16 07:07 Hemoglobin A1c 7.2 % (4.2-6.5) H 08/06/16 07:10 Calcium 9.0 mg/dl (8.6-10.4) 08/09/16 07:07 Phosphorus 4.5 mg/dL (2.5-4.5) 08/08/16 14:13 Magnesium 1.6 mg/dL (1.6-2.3) 08/08/16 14:13 Iron 95 ug/dL (37-170) 08/06/16 07:10 TIBC 307 ug/dL (250-450) 08/06/16 07:10 % Saturation 31 (20-55) 08/06/16 07:10 Ferritin 106.0 ng/mL 08/06/16 07:10 Total Bilirubin 0.4 mg/dL (0.2-1.3) 08/09/16 07:07 AST 41 U/L (14-36) H D 08/09/16 07:07 ALT 44 U/L (9-52) 08/09/16 07:07 Alkaline Phosphatase 109 U/L (38-126) 08/09/16 07:07 Total Protein 7.2 g/dL (6.3-8.3) 08/09/16 07:07 Albumin 3.7 g/dL (3.5-5.0) 08/09/16 07:07 Globulin 3.6 gm/dL (2.2-3.9) 08/09/16 07:07 Albumin/Globulin Ratio 1.0 (1.0-2.1) 08/09/16 07:07 Triglycerides 107 mg/dL (0-149) D 08/06/16 07:10 Cholesterol 180 mg/dL (0-199) 08/06/16 07:10 LDL Cholesterol Direct 74 mg/dL (0-129) 08/06/16 07:10 HDL Cholesterol 49 mg/dL (30-70) 08/06/16 07:10 Random Vancomycin 16.08 ug/mL 08/07/16 08:04 Hepatitis A IgM Ab Negative (NEGATIVE) 08/06/16 07:10 Hep Bs Antigen Negative (NEGATIVE) 08/06/16 07:10 Hep B Core IgM Ab Negative (NEGATIVE) 08/06/16 07:10 Hepatitis C Antibody Negative (NEGATIVE) 08/06/16 07:10 - Hospital Course Hospital Course: Attending: Dr. Taylor Admit date- 08/05/16 DC date: 08/09/16 Procedures - bone biopsy, debridement No complications Discharge dx 1. Osteomyelitis 2. PAD 3. HTN 4. DM 2 5. HLD 6. Iron anemia Consults: ID-[facility] Podiatry- Cindy Cardio- Mil HPI: see h/p Lab data: see lab section Hospital course Patient is a 51 year old female with past medical of PAD, DM, iron deficiency anemia, HTN, hypercholesterolemia presenting with a R foot blister first noticed 6 weeks prior to evaluation. Patient reports she was seen by Dr. White who gave her PO ciprofloxacin which did not help her infection. Patient was seen in [facility] at the beginning of the month where she had a questionable x-ray of the right foot done, which showed possible osteomyelitis. She has had a similar complain 4-5 years ago for which she was admitted and started on IV antibiotics and then discharged home with a PICC line for IV abx for osteomyelitis. Patient denies much pain at the site and reports that her regimen of Ibuprofen 600mg every 12 hours helped golden the pain. At home she was applying betadine and the silver salazine and wrapping her foot with gauze. She was last seen by Dr. Jaeger for her PAD 1 month ago and had b/l ABIs. Patient reports some pain with ambulation as that places pressure on the site but otherwise denies any fever, chills, numbness/tingling of her extremities, chest pain, palpitations, shortness of breath, cough, abdominal pain, bowel/ bladder complaints, swelling of her extremities, recent travel/sick contacts. Pt had DC meds 1. vancomycin 2. bactrim 3. hydralazine 4. hctz Discharge instructions 1. please return if condition worsens. pt to get vanco infusion 1 g q 12 for 6 weeks with vanco trough weekly and cbc, cmp weekly, along with bactrim ds bid for 3 weeks. pt to follow with pmd - Date & Time of H&P Date of H&P: 08/05/16 Time of H&P: 12:09 Discharge Exam - Head Exam Head Exam: ATRAUMATIC, NORMAL INSPECTION, NORMOCEPHALIC - Eye Exam Eye Exam: EOMI - ENT Exam ENT Exam: Mucous Membranes Moist - Neck Exam Neck exam: Full Rom, Normal Inspection - Respiratory Exam Respiratory Exam: NORMAL BREATHING PATTERN, UNREMARKABLE - Cardiovascular Exam Cardiovascular Exam: +S1, +S2 - GI/Abdominal Exam GI & Abdominal Exam: Normal Bowel Sounds - Extremities Exam Additional comments: Cast on right leg, sensation intact. - Neurological Exam Neurological exam: Alert, Oriented x3 - Psychiatric Exam Psychiatric exam: Normal Affect, Normal Mood - Skin Skin Exam: Dry, Intact, Normal Color, Warm Discharge Plan - Discharge Medications Prescriptions: Clopidogrel [Plavix] 75 mg PO DAILY #30 tab Sulfamethoxazole/Trimethoprim [Bactrim DS 800 mg-160 mg] 1 tab PO Q12 #42 tab Vancomycin 1gm in NS 250ml [Vancomycin 1gm] 1 gm IVPB Q12 #84 bag - Follow Up Plan Condition: STABLE Disposition: HOME/ ROUTINE Instructions: Sulfamethoxazole/Trimethoprim (By mouth), Clopidogrel (By mouth) , Diabetic Foot Care (DC), Diabetic Foot Ulcers (DC), Hypertension (DC), Hypertension (GEN) Additional Instructions: Follow up with your primary doctor in 1 week Referrals: Joshua Fabian MD [Staff Provider] - Glenys Taylor DO [Staff Provider] - Reed Jaeger MD [Staff Provider] - <Glenys Taylor V - Last Filed: 11/07/16 00:45> Provider - Provider Date of Admission: 08/05/16 11:53 Attending physician: Glenys Taylor DO Hospital Course - Lab Results Lab Results: Micro Results 08/05/16 19:30 Blood Blood Culture - Final NO GROWTH AFTER 5 DAYS 08/05/16 19:30 Blood Gram Stain - Final TEST NOT PERFORMED 08/05/16 19:30 Blood Blood Culture - Final NO GROWTH AFTER 5 DAYS 08/05/16 19:30 Blood Gram Stain - Final TEST NOT PERFORMED 08/06/16 08:45 Bone Gram Stain - Final 08/06/16 08:45 Bone Tissue Culture - Final Stenotrophomonas Maltophilia Enterococcus Faecalis Most Recent Lab Values WBC 4.9 K/uL (4.8-10.8) 08/09/16 07:07 RBC 3.91 Mil/uL (3.80-5.20) 08/09/16 07:07 Hgb 10.5 g/dL (11.0-16.0) L 08/09/16 07:07 Hct 32.0 % (34.0-47.0) L 08/09/16 07:07 MCV 81.7 fL (81.0-99.0) 08/09/16 07:07 MCH 26.7 pg (27.0-31.0) L 08/09/16 07:07 MCHC 32.7 g/dL (33.0-37.0) L 08/09/16 07:07 RDW 13.4 % (11.5-14.5) 08/09/16 07:07 Plt Count 199 K/uL (130-400) 08/09/16 07:07 MPV 10.6 fL (7.2-11.7) 08/09/16 07:07 Neut % (Auto) 44.4 % (50.0-75.0) L 08/09/16 07:07 Lymph % (Auto) 43.2 % (20.0-40.0) H 08/09/16 07:07 [place] % (Auto) 5.8 % (0.0-10.0) 08/09/16 07:07 Eos % (Auto) 5.2 % (0.0-4.0) H 08/09/16 07:07 Baso % (Auto) 1.4 % (0.0-2.0) 08/09/16 07:07 Neut # 2.2 K/uL (1.8-7.0) 08/09/16 07:07 Lymph # 2.1 K/uL (1.0-4.3) 08/09/16 07:07 [place] # 0.3 K/uL (0.0-0.8) 08/09/16 07:07 Eos # 0.3 K/uL (0.0-0.7) 08/09/16 07:07 Baso # 0.1 K/uL (0.0-0.2) 08/09/16 07:07 Retic Count 0.8 % (0.5-1.5) D 08/06/16 07:10 PT 11.1 SECONDS (9.7-12.2) 08/06/16 07:10 INR 1.0 08/06/16 07:10 APTT 28 SECONDS (21-34) 08/06/16 07:10 Sodium 140 mmol/L (132-148) 08/09/16 07:07 Potassium 4.3 mmol/L (3.6-5.2) 08/09/16 07:07 Chloride 104 mmol/L (98-107) 08/09/16 07:07 Carbon Dioxide 25 mmol/L (22-30) 08/09/16 07:07 Anion Gap 15 (10-20) 08/09/16 07:07 BUN 30 mg/dL (7-17) H 08/09/16 07:07 Creatinine 1.3 MG/DL (0.7-1.2) H 08/09/16 07:07 Est GFR ( Amer) 52 08/09/16 07:07 Est GFR (Non-Af Amer) 43 08/09/16 07:07 POC Glucose (mg/dL) 139 mg/dL (65-110) H 08/09/16 16:24 Random Glucose 87 mg/dL (65-105) 08/09/16 07:07 Hemoglobin A1c 7.2 % (4.2-6.5) H 08/06/16 07:10 Calcium 9.0 mg/dl (8.6-10.4) 08/09/16 07:07 Phosphorus 4.5 mg/dL (2.5-4.5) 08/08/16 14:13 Magnesium 1.6 mg/dL (1.6-2.3) 08/08/16 14:13 Iron 95 ug/dL (37-170) 08/06/16 07:10 TIBC 307 ug/dL (250-450) 08/06/16 07:10 % Saturation 31 (20-55) 08/06/16 07:10 Ferritin 106.0 ng/mL 08/06/16 07:10 Total Bilirubin 0.4 mg/dL (0.2-1.3) 08/09/16 07:07 AST 41 U/L (14-36) H D 08/09/16 07:07 ALT 44 U/L (9-52) 08/09/16 07:07 Alkaline Phosphatase 109 U/L (38-126) 08/09/16 07:07 Total Protein 7.2 g/dL (6.3-8.3) 08/09/16 07:07 Albumin 3.7 g/dL (3.5-5.0) 08/09/16 07:07 Globulin 3.6 gm/dL (2.2-3.9) 08/09/16 07:07 Albumin/Globulin Ratio 1.0 (1.0-2.1) 08/09/16 07:07 Triglycerides 107 mg/dL (0-149) D 08/06/16 07:10 Cholesterol 180 mg/dL (0-199) 08/06/16 07:10 LDL Cholesterol Direct 74 mg/dL (0-129) 08/06/16 07:10 HDL Cholesterol 49 mg/dL (30-70) 08/06/16 07:10 Random Vancomycin 16.08 ug/mL 08/07/16 08:04 Hepatitis A IgM Ab Negative (NEGATIVE) 08/06/16 07:10 Hep Bs Antigen Negative (NEGATIVE) 08/06/16 07:10 Hep B Core IgM Ab Negative (NEGATIVE) 08/06/16 07:10 Hepatitis C Antibody Negative (NEGATIVE) 08/06/16 07:10 Attending/Attestation - Attestation I have personally seen and examined this patient.: Yes I have fully participated in the care of the patient.: Yes I have reviewed all pertinent clinical information, including history, physical exam and plan: Yes
--- NOTE | 2016-08-09 17:24 | CP.PCM.PN ---
<Robbin Arceo - Last Filed: 08/09/16 17:24> Subjective - Date & Time of Evaluation Date of Evaluation: 08/09/16 Time of Evaluation: 17:20 - Subjective Subjective: Med progress note. Attending: Dr. Taylor Pt seen and examined at bedside. No acute distress. No events overnight. pt getting picc line. DC order placed. Objective - Vital Signs/Intake and Output Vital Signs (last 24 hours): Temp Pulse Resp BP Pulse Ox 97.5 F L 60 20 154/72 H 98 08/09/16 08:26 08/09/16 08:26 08/09/16 08:26 08/09/16 08:26 08/09/16 08:26 Intake and Output: 08/09/16 08/09/16 06:59 18:59 Intake Total 440 550 Balance 440 550 - Medications Medications: Current Medications Acetaminophen (Tylenol 325mg Tab) 650 mg PO Q6 PRN PRN Reason: Pain, Mild (1-3) Last Admin: 08/08/16 01:18 Dose: 650 mg Glipizide (Glucotrol) 10 mg PO BIDAC [facility] Last Admin: 08/05/16 20:51 Dose: 10 mg Hydralazine HCl (Apresoline) 10 mg PO BID [facility] Last Admin: 08/09/16 09:57 Dose: 10 mg Hydralazine HCl (Apresoline) 2.5 mg IVP Q15MIN PRN PRN Reason: Systolic Blood Pressure Last Admin: 08/06/16 10:52 Dose: 2.5 mg Hydrochlorothiazide (Hydrodiuril) 25 mg PO DAILY [facility] Last Admin: 08/09/16 09:56 Dose: 25 mg Piperacillin Sod/Tazobactam (Sod 3.375 gm/ Sodium Chloride) 100 mls @ 200 mls/ hr IVPB Q6 [facility] Last Admin: 08/09/16 12:15 Dose: 200 mls/hr Vancomycin HCl 1 gm/ Sodium (Chloride) 250 mls @ 166.7 mls/hr IVPB Q12 [facility] Last Admin: 08/06/16 21:12 Dose: 166.7 mls/hr Insulin Aspart (Novolog) 0 unit SC ACHS [facility] PRN Reason: Protocol Last Admin: 08/09/16 12:09 Dose: 2 unit Saccharomyces Boulardii (Florastor) 250 mg PO BID [facility] Last Admin: 08/09/16 09:56 Dose: 250 mg - Labs Labs: 08/09/16 07:07 08/09/16 07:07 PT 11.1 SECONDS (9.7-12.2) 08/06/16 07:10 INR 1.0 08/06/16 07:10 APTT 28 SECONDS (21-34) 08/06/16 07:10 - Constitutional Appears: Non-toxic, No Acute Distress - Head Exam Head Exam: ATRAUMATIC, NORMAL INSPECTION, NORMOCEPHALIC - Eye Exam Eye Exam: EOMI - ENT Exam ENT Exam: Mucous Membranes Moist - Neck Exam Neck Exam: Full ROM, Normal Inspection - Respiratory Exam Respiratory Exam: NORMAL BREATHING PATTERN - Cardiovascular Exam Cardiovascular Exam: +S1, +S2 - GI/Abdominal Exam GI & Abdominal Exam: Soft, Normal Bowel Sounds. absent: Tenderness - Extremities Exam Extremities Exam: absent: Full ROM, Normal Inspection Additional comments: cast on right leg, sensation intact.. - Neurological Exam Neurological Exam: Alert, Awake, Oriented x3 - Psychiatric Exam Psychiatric exam: Normal Affect, Normal Mood - Skin Skin Exam: Dry, Intact, Normal Color, Warm Assessment and Plan - Assessment and Plan (Free Text) Assessment: This is a 51 year old female with past medical hx of PAD, DM, iron deficiency anemia, HTN, hyperlipidemia presenting with infected diabetic foot ulcer, suspicious for osteomyelitis 1. Diabetic R plantar foot ulcer -Patient admitted to med/surg -rule out osteomyelitis- Dr. Fabian says likely developing acute osteo -MRI shows prominent reactive bone marrow edema suspicious for osteo -X ray shows prominent soft tissue swelling lateral midfoot, patchy increased sclerosis 5th metatarsal shaft which may represent acute osteomyelitis, deformity with bony ankylosis and sclerosis at level of 2nd metatarsal bases and corresponding tarsal bones, near complete ankylosis of visualized midfoot, productive change with cortical sclerosis at volar midfoot, diffuse osteopenia - Vancomycin on hold for GFR - Zosyn 3.375 IVPB Q6H day 5 - f/u blood culture: blood cultures negative -wound culture shows gram negative steven/gram positive cocci - Dr. White podiatry following- patient is s/p debridement 08/06/16 - ID Dr. Fabian consulted- f/u recs. we will follow up regarding length of tx. -pt recieved picc -pt will get abx for 6 weeks IV vanco, and ds bactrim for 3 weeks bid -bone biopsy positive for resistant organism 2. Hx of PAD -Plavix 75mg po on hold >> can resume plavix 75 daily 3. Hx of Hypertension -Hydralazine 10 BID ASIF - HCTZ 25mg PO daily -hydralazine 2.5 q 15 prn 4. Hx of DM2 -ISS 5. Hx of HLD -f/u lipid panel 6. Hx of Iron Deficiency Anemia -continue to monitor 7. GI/DVT PPX -heparin 5000 q 12 -regular diet discussed with Dr. Taylor <Glenys Taylor V - Last Filed: 11/07/16 00:44> Objective - Vital Signs/Intake and Output Vital Signs (last 24 hours): Temp Pulse Resp BP Pulse Ox 98.1 F 59 L 20 181/73 H 98 08/09/16 15:00 08/09/16 15:00 08/09/16 15:00 08/09/16 15:00 08/09/16 15:00 Intake and Output: 08/09/16 08/10/16 18:59 06:59 Intake Total 550 Balance 550 - Medications Medications: Current Medications Acetaminophen (Tylenol 325mg Tab) 650 mg PO Q6 PRN PRN Reason: Pain, Mild (1-3) Last Admin: 08/08/16 01:18 Dose: 650 mg Glipizide (Glucotrol) 10 mg PO BIDAC [facility] Last Admin: 08/05/16 20:51 Dose: 10 mg Hydralazine HCl (Apresoline) 10 mg PO BID [facility] Last Admin: 08/09/16 17:12 Dose: 10 mg Hydralazine HCl (Apresoline) 2.5 mg IVP Q15MIN PRN PRN Reason: Systolic Blood Pressure Last Admin: 08/06/16 10:52 Dose: 2.5 mg Hydrochlorothiazide (Hydrodiuril) 25 mg PO DAILY [facility] Last Admin: 08/09/16 09:56 Dose: 25 mg Piperacillin Sod/Tazobactam (Sod 3.375 gm/ Sodium Chloride) 100 mls @ 200 mls/ hr IVPB Q6 [facility] Last Admin: 08/09/16 17:12 Dose: 200 mls/hr Vancomycin HCl 1 gm/ Sodium (Chloride) 250 mls @ 166.7 mls/hr IVPB Q12 [facility] Last Admin: 08/06/16 21:12 Dose: 166.7 mls/hr Insulin Aspart (Novolog) 0 unit SC ACHS [facility] PRN Reason: Protocol Last Admin: 08/09/16 16:30 Dose: Not Given Saccharomyces Boulardii (Florastor) 250 mg PO BID [facility] Last Admin: 08/09/16 17:12 Dose: 250 mg - Labs Labs: 08/09/16 07:07 08/09/16 07:07 PT 11.1 SECONDS (9.7-12.2) 08/06/16 07:10 INR 1.0 08/06/16 07:10 APTT 28 SECONDS (21-34) 08/06/16 07:10 Attending/Attestation - Attestation I have personally seen and examined this patient.: Yes I have fully participated in the care of the patient.: Yes I have reviewed all pertinent clinical information, including history, physical exam and plan: Yes
[2016-08-09 17:49] VITALS: BP 181/73; PULSE 59; TEMP 98.1
--- NOTE | 2016-08-09 18:14 | CP.PCM.PN ---
Subjective - Date & Time of Evaluation Date of Evaluation: 08/09/16 Time of Evaluation: 08:00 - Subjective Subjective: comfortable bone c/s + enterobacter and enterococcus wound dry bone scan neg mri equivocal will treat as acute OM x 3 weeks follow up with Dr White weekly Objective - Vital Signs/Intake and Output Vital Signs (last 24 hours): Temp Pulse Resp BP Pulse Ox 98.1 F 59 L 20 181/73 H 98 08/09/16 15:00 08/09/16 15:00 08/09/16 15:00 08/09/16 15:00 08/09/16 15:00 Intake and Output: 08/09/16 08/09/16 06:59 18:59 Intake Total 440 550 Balance 440 550 - Medications Medications: Current Medications Acetaminophen (Tylenol 325mg Tab) 650 mg PO Q6 PRN PRN Reason: Pain, Mild (1-3) Last Admin: 08/08/16 01:18 Dose: 650 mg Glipizide (Glucotrol) 10 mg PO BIDAC [facility] Last Admin: 08/05/16 20:51 Dose: 10 mg Hydralazine HCl (Apresoline) 10 mg PO BID [facility] Last Admin: 08/09/16 17:12 Dose: 10 mg Hydralazine HCl (Apresoline) 2.5 mg IVP Q15MIN PRN PRN Reason: Systolic Blood Pressure Last Admin: 08/06/16 10:52 Dose: 2.5 mg Hydrochlorothiazide (Hydrodiuril) 25 mg PO DAILY [facility] Last Admin: 08/09/16 09:56 Dose: 25 mg Piperacillin Sod/Tazobactam (Sod 3.375 gm/ Sodium Chloride) 100 mls @ 200 mls/ hr IVPB Q6 [facility] Last Admin: 08/09/16 17:12 Dose: 200 mls/hr Vancomycin HCl 1 gm/ Sodium (Chloride) 250 mls @ 166.7 mls/hr IVPB Q12 [facility] Last Admin: 08/06/16 21:12 Dose: 166.7 mls/hr Insulin Aspart (Novolog) 0 unit SC ACHS ASIF PRN Reason: Protocol Last Admin: 08/09/16 12:09 Dose: 2 unit Saccharomyces Boulardii (Florastor) 250 mg PO BID [facility] Last Admin: 08/09/16 17:12 Dose: 250 mg - Labs Labs: 08/09/16 07:07 08/09/16 07:07 PT 11.1 SECONDS (9.7-12.2) 08/06/16 07:10 INR 1.0 08/06/16 07:10 APTT 28 SECONDS (21-34) 08/06/16 07:10 Assessment and Plan (1) Foot ulcer Status: Acute
--- NOTE | 2016-08-10 05:47 | CP.PCM.PN ---
Subjective - Date & Time of Evaluation Date of Evaluation: 08/09/16 Time of Evaluation: 09:00 - Subjective Subjective: pt seen on rounds s/p bone debridement with culture taken of bone in OR. Objective - Vital Signs/Intake and Output Vital Signs (last 24 hours): Temp Pulse Resp BP Pulse Ox 98.1 F 59 L 20 181/73 H 98 08/09/16 15:00 08/09/16 15:00 08/09/16 15:00 08/09/16 15:00 08/09/16 15:00 Intake and Output: 08/09/16 08/10/16 18:59 06:59 Intake Total 550 Balance 550 - Labs Labs: 08/09/16 07:07 08/09/16 07:07 PT 11.1 SECONDS (9.7-12.2) 08/06/16 07:10 INR 1.0 08/06/16 07:10 APTT 28 SECONDS (21-34) 08/06/16 07:10 - Extremities Exam Additional comments: O/Wound on plantar of foot is stable and improved. Vascular status intact b/l . DM neuropathy b/l Charcot foot b/l . Less prominence of bone note plantarly right post debridement . C/s Sten.Maltiphilia/E.Coli noted on bone culture for diagnosis of OM . Assessment and Plan - Assessment and Plan (Free Text) Assessment: A/DM ULCER right midffoot s/p debridemnt/OM right foot Plan: P/Apply Xeroform dsd and posterior splint . Pt will be seen by Dr Fabian for home iv antibiotics and will follow in wound center with Me .
== END 2016-08-09 20:45 | disposition home or self-care (01) | DRG 629 ==
LOC: C.ER 08:44 → C.9E 11:53 → C.3T 15:03
PROVIDERS: ADMIT Hospitalist; ATTEND Hospitalist
PROC: 0QBL0ZZ Excision of Right Tarsal, Open Approach (ICD-10-PCS; principal; 2016-08-05)
PROC: 0QBL0ZX Excision of Right Tarsal, Open Approach, Diagnostic (ICD-10-PCS; 2016-08-05)
DX: E11.69 Type 2 diabetes mellitus with other specified complication (principal); M86.9 Osteomyelitis, unspecified; E11.610 Type 2 diabetes mellitus with diabetic neuropathic arthropathy; E11.621 Type 2 diabetes mellitus with foot ulcer; L97.519 Non-pressure chronic ulcer of other part of right foot with unspecified severity; I10 Essential (primary) hypertension; I73.9 Peripheral vascular disease, unspecified; E78.00 Pure hypercholesterolemia, unspecified; D50.9 Iron deficiency anemia, unspecified; Z98.84 Bariatric surgery status; Z87.891 Personal history of nicotine dependence

== ENCOUNTER 2017-05-29 07:17 | Day surgery (SDC) | payer MEDICARE, MEDICAID ==
[2017-04-05 16:03] VITALS: BMI 24.3
[2017-05-29] MEDS ORDERED: Bupivacaine HCl 0.5% PF (10 ml) Inj ONE (09:48)
[2017-05-29] MEDS ORDERED: Lidocaine 2% Inj (20ml) ONE (09:48)
[2017-05-29] MEDS ORDERED: Propofol 10 mg/ml Inj (20 ML) ONE (10:05)
[2017-05-29] MEDS ORDERED: Midazolam 2 MG/2 ML VIAL ONE (10:05)
[2017-05-29] MEDS ORDERED: Sodium Chloride 0.9% 1,000 ML IV ONE (10:15)
[2017-05-29] MEDS ORDERED: ceFAZolin 1 gm in NS 1 GM/100 ML BAG IVPB ONE (10:15)
[2017-05-29] MEDS ORDERED: Lactated Ringer's 1,000 ML IV ONE (10:35)
--- NOTE | 2017-05-29 10:37 | PCM.SURG1 ---
Surgeon's Initial Post Op Note - Surgeon's Notes Surgeon: Dr. White Shadowgraph Operator: Dr. Alem Ford PGY1 Type of Anesthesia: IV Sedation, Local Anesthesia Administered By: Rufino Abernathy CRNA/Shakir CHILDERS Pre-Operative Diagnosis: right foot chronic diabetic non healing ulceration Operative Findings: see operative report Post-Operative Diagnosis: same Operation Performed: right foot ulcer debridement with application of Apligraf Specimen/Specimens Removed: none Estimated Blood Loss: EBL {In ML}: 10 Blood Products Given: N/A Drains Used: No Drains Post-Op Condition: Good Date of Surgery/Procedure: 05/29/17 Time of Surgery/Procedure: 10:37
[2017-05-29 11:51] VITALS: O2SAT 100
[2017-05-29 12:50] VITALS: BP 166/64; PULSE 62; RESP 18; TEMP 97
--- NOTE | 2017-05-30 04:39 | OP ---
PROCEDURE DATE: 05/29/2017 PREOPERATIVE DIAGNOSIS: Right foot chronic diabetic nonhealing ulcerations. POSTOPERATIVE DIAGNOSIS: Right foot chronic diabetic nonhealing ulcerations. PROCEDURE: Right foot ulcer debridement with application of Apligraf. SURGEON: Cornell White DPM SCHOOL CROSSING GUARD: Alem Ford DPM, PY-1 TYPE OF ANESTHESIA: IV sedation with local. ANESTHESIA ADMINISTERED BY: Evan Abernathy CRNA/Dr. Schilling. INDICATIONS: The patient is a 52-year-old female with the above diagnosis. The patient has exhausted all conservative treatment at this time and now requires surgical intervention. The patient signed the consent after the careful explanation of all risks, benefits, complications, and alternatives to surgical procedure. No guarantees were given nor implied. N.p.o. status was confirmed prior to taking the patient to the operating room. PREPARATION: The patient was brought into the operating room and placed on the operating room table in a supine position. Time-out was performed for identification of the correct patient and procedure. After induction of IV sedation, 14 mL of a 1:1 mixture of 2% lidocaine plain and 0.5% Marcaine plain was administered in a local ring block fashion to the right plantar mid foot surrounding the existing ulceration. The right lower extremity was then prepped and draped in normal sterile manner and the procedure began. No tourniquet was used during the procedure. Procedure attention was then directed to the plantar aspect of the right mid foot where a nonhealing wound measuring approximately 1 cm x 1 cm x 1.2 cm was present. A sterile curette and forceps were utilized to excisionally debride all necrotic and fibrotic tissue from the wound bed and wound margins. At this time, a bulb syringe and sterile saline was used to thoroughly irrigate the wound bed. Next, an Apligraf skin substitute was applied to the wound bed and adhered to the wound bed utilizing 3-0 Vicryl absorbable sutures. The wound was then dressed with Xeroform, a wet-to-dry dressing with saline, 4x4 gauze, Kerlix, and Coban. POSTOPERATIVE CONDITION: The patient tolerated the anesthesia and procedure well and was escorted to the recovery room. His vital signs are stable and neurovascular status intact to the right lower extremity. The patient will be discharged home in stable condition and is allowed partial weightbearing to the right heel with the use of a surgical shoe. The patient will follow up with Dr. White in the wound care center within one week of discharge. Alem Ford DPM
== END 2017-05-29 13:02 | disposition home or self-care (01) ==
LOC: C.SDS 07:17
PROVIDERS: ATTEND Podiatrist
DX: L97.519 Non-pressure chronic ulcer of other part of right foot with unspecified severity (principal)
CPT/HCPCS: 11042; 82948; J0360; J2250; J2704; J3010; J7040; J7120

== ENCOUNTER 2017-08-05 06:15 | Day surgery (SDC) | payer MEDICARE, MEDICAID ==
[2017-08-01 11:28] VITALS: BMI 25.0
[2017-08-05] MEDS ORDERED: Lidocaine Hydrochloride 10 ML INJ ONE (07:38)
[2017-08-05] MEDS ORDERED: Bupivacaine HCl 0.5% PF (30 ml) Inj ONE (07:39)
[2017-08-05] MEDS ORDERED: Midazolam 2 MG/2 ML VIAL ONE (08:01)
[2017-08-05] MEDS ORDERED: Propofol 10 mg/ml Inj (20 ML) ONE (08:06)
[2017-08-05] MEDS: ceFAZolin 1 gm in NS 1 GM/100 ML BAG IVPB ONE ×2 (08:07→08:14)
--- NOTE | 2017-08-05 08:53 | PCM.SURG1 ---
Surgeon's Initial Post Op Note - Surgeon's Notes Surgeon: MANUEL CoombsM Interlocking Installer: Dr. Lai DPM PGY1 Type of Anesthesia: IV Sedation, Local (7cc 1:1 mixtuer) Anesthesia Administered By: Dr. Chavez Pre-Operative Diagnosis: right foot chronic diabetic non healing ulceration Operative Findings: see operative report. materials: Amniomatrix 2cc, Amnioexcel 4x8 cm (x2), PriMatrix, 4-0 nylon Post-Operative Diagnosis: same Operation Performed: right foot debridement of ulceration with application of allograft Specimen/Specimens Removed: None Estimated Blood Loss: EBL {In ML}: 1 Blood Products Given: N/A Drains Used: No Drains Post-Op Condition: Good Date of Surgery/Procedure: 08/05/17 Time of Surgery/Procedure: 08:54
[2017-08-05] MEDS ORDERED: Oxycodone/Acetaminophen 5/325 mg Tab PO PRN ×2 (08:58)
[2017-08-05 09:18] VITALS: O2SAT 100
[2017-08-05 12:55] VITALS: BP 136/53; PULSE 69; RESP 18; TEMP 98.3
--- NOTE | 2017-08-06 02:10 | OP ---
PROCEDURE DATE: 08/05/2017 PREOPERATIVE DIAGNOSIS: Right foot nonhealing ulceration. POSTOPERATIVE DIAGNOSIS: Right foot nonhealing ulceration. PROCEDURE: Right foot debridement of ulceration with application of Allograft. SURGEON: Dr. Cornell White DPM SLAB STRIPPER: Tony Hoyt, PGY-1 TYPE OF ANESTHESIA: IV sedation with local, 7 mL of 1:1 mixture of 1% lidocaine plain and 0.5% Marcaine plain. ANESTHESIA ADMINISTERED BY: Paty Chavez DO INDICATIONS: The patient is a 52-year-old female with the above diagnosis. The patient has exhausted all conservative treatment at this time and is still complaining of a nonhealing ulceration to the plantar aspect of her right foot. The patient now requests surgical intervention. The patient signed the consent after careful explanation of risks, benefits, alternatives, and complications of procedure and wishes to proceed. No guarantees were given nor implied. PREPARATION: The patient was brought into the operating room and placed on the operating room table in a supine position. A time-out was performed for identification of the correct patient and procedure. After induction of IV sedation, a total of 7 mL of 1:1 mixture of 1% lidocaine plain and 0.5% Marcaine plain was administered in a proximal-V type fashion to the ulceration. The right foot was then prepped and draped in normal sterile manner and the procedure began. DESCRIPTION OF PROCEDURE: Right foot debridement of ulceration with application of Allograft: Attention was directed to the plantar aspect of the right foot, plantar to the cuboid, where it was noted to have a full- thickness ulceration measuring approximately 0.4 cm x 0.5 cm x 0.2 cm. The ulcer was noted to have a 100% granular base and hyperkeratotic rim. Utilizing a 15 blade, the hyperkeratotic rim was excisionally debrided down to healthy skin. Post debridement, the ulcer was noted to have the same measurement. Next, utilizing a pulse lavage of 3 L of normal saline, the ulceration was irrigated until healthy, active bleeding appeared. Next, 2 mL of AmnioMatrix injectable was injected periwound. Following this, two AmnioExcel grafts were placed onto the wound bed. Once the AmnioExcel was firmly placed on to the wound bed, PriMatrix was applied to the ulceration and fenestrated. The PriMatrix was then adhered to the wound bed using 4-0 nylon in a simple interrupted suture technique. The Adaptic was then applied over the PriMatrix and then dressed with sterile gauze, Rafael, Kerlix, and Coban. POSTOPERATIVE CONDITION: The patient tolerated the anesthesia and procedure well and was escorted to the recovery room with vital signs stable and neurovascular status intact to the right lower extremity. The patient is to remain nonweightbearing to the right lower extremity with the assistance of crutches. The patient is to keep the dressing clean, dry, and intact for one week. After one week, the patient will be followed in the wound care center. Tony Hoyt DPM [facility]
== END 2017-08-05 12:50 | disposition hospice, home (50) ==
LOC: C.SDS 06:15
PROVIDERS: ATTEND Podiatrist
DX: E11.621 Type 2 diabetes mellitus with foot ulcer (principal); L97.412 Non-pressure chronic ulcer of right heel and midfoot with fat layer exposed
CPT/HCPCS: 15004; 15275; 82948; 97116; 97161; C1762; G8978; G8979; G8980; J0690; J2250; J2704; J3010; Q4137